=== PATIENT | female | born 1960 | race Caucasian/White ===

== ENCOUNTER → 2016-09-05 | Outpatient (CLI) | payer OTHER ==
[~2016-09-05] MED LIST: CALC600T62 PO; DEPA1TAB3 PO; DICL1GEL3 TD; FISH1000 PO; FOLI400T PO; LISI10TA4 PO; SIMV20TA2 PO; VALP1CAP2 PO; VITA100072 PO; VITA500055 PO
--- NOTE | 2016-09-05 17:45 | REP ---
Digital diagnostic bilateral mammography with CAD and bilateral focused breast sonography: History: Screening mammography from August 25, 2016 was BIRADS category 0 because of a suspected subcentimeter nodule in the medial aspect of each breast. Diagnostic imaging was recommended bilaterally. Comparison is also made with prior mammography from January 08, 2015 and December 25, 2013. Mammographic findings: Magnified focal spot compression CC, MLO and true MLO views of each breast were obtained. The nodular opacity is confirmed in the medial aspect of the right breast on CC view. It is also seen on MLO projection magnified spot view. It has sharply circumscribed margins. On the left, there is a nodular opacity seen in the medial aspect of the left breast on the CC view. This is not confidently identified on the orthogonal MLO and true MLO views. Questionable opacity is seen on the MLO projection image. Breast parenchyma is somewhat nodular throughout. There are benign calcifications. No suspicious calcification is appreciated. Sonographic findings: The inferomedial quadrant each breast is evaluated sonographically. In the inferomedial quadrant of the right breast at approximately 3 o'clock, there is a 9 x 8 x 3 mm cyst 2.7 cm from the nipple, which it is felt to correspond with the mammographic opacity. There is also a 7 mm cyst at 3 o'clock in the right breast. In the inferomedial quadrant of the left breast, heterogeneous fibroglandular background echotexture is seen but no mass or cyst is observed. Impression: 1. BIRADS category 2 benign right breast imaging. Cyst identified sonographically corresponding to the mammographic opacity. 2. BIRADS category 3 probably benign left breast imaging. Small 4 mm nodular density seen with confidence only on the CC view. No sonographic correlate. 6-month follow-up left breast mammography and sonography is suggested. BI-RADS/ACR category 3 mammogram. Probably benign findings. Initial short-term followup (usually 6 month) examination. This mammogram was interpreted with the aid of an FDA-approved computer-aided detection system. The patient states she/he had a clinical breast exam in January 2016. The patient letter being requested is M3. The patient letter being requested is M3 . . Signed by Mohsen Weems MD 09/06/2016 08:01 A
== END ==
LOC: M RAD 13:52
PROVIDERS: ATTEND Family Medicine
DX: N60.01 Solitary cyst of right breast (principal); N63 Unspecified lump in breast

== ENCOUNTER → 2016-09-05 | Outpatient (CLI) | payer OTHER ==
--- NOTE | 2016-09-07 10:15 | DEXA ---
AP SPINE L1 - L4 0.951 -2.0 -2.1 LT FEMUR TOTAL 0.941 -0.5 -0.5 RT FEMUR TOTAL 0.961 -0.4 -0.4 TOTAL BODY TOTAL OTHER DUAL FEMUR FRAX* ASSESSMENT Risk factors: History of fracture (adult). 10 year probability of fracture Major osteoporotic fracture 10.0 % Hip fracture 0.5 % COMMENTS: Normal bone densitometry of the right hip. There is low bone density of the spine. There is low bone density of the left hip. The density of the spine has decreased 3.5% since 12/25/2013. The density of the left hip has decreased 4.7% since 12/25/2013. The density of the right hip has decreased 3.4% since 12/25/2013. FOLLOW-UP: Recommendation for the next bone density exam: 2 years. DILAN
== END ==
LOC: M WHC 13:11
PROVIDERS: ATTEND Family Medicine
DX: M85.80 Other specified disorders of bone density and structure, unspecified site (principal)

== ENCOUNTER → 2016-11-17 | Outpatient (REF) | payer OTHER ==
[2016-11-17 13:05] LABS: ALBUMIN 3.5 GM/DL (3.2-5.2); ALKALINE PHOSPHATASE 64 U/L (45-117); ALT/SGPT 19 U/L (12-78); ANION GAP 7 MEQ/L (8-16); AST/SGOT 12 U/L (15-37); BILIRUBIN,TOTAL 0.4 MG/DL (0.2-1.0); BLOOD UREA NITROGEN 16 MG/DL (7-18); CALCIUM LEVEL 9.2 MG/DL (8.5-10.1); CARBON DIOXIDE LEVEL 30 MEQ/L (21-32); CHLORIDE LEVEL 105 MEQ/L (98-107); CHOLESTEROL LEVEL 137 MG/DL (<200); CREATININE FOR GFR 0.59 MG/DL (0.55-1.02); GLOMERULAR FILTRATION RATE > 60.0 (>51); GLUCOSE, FASTING 103 MG/DL (70-105); MAGNESIUM LEVEL 2.2 MG/DL (1.8-2.4); POTASSIUM SERUM 4.4 MEQ/L (3.5-5.1); SODIUM LEVEL 142 MEQ/L (136-145); TRIGLYCERIDES LEVEL 201 MG/DL (<150)
[2016-11-17 13:07] LABS: VITAMIN B12 LEVEL 772 PG/ML (247-911)
== END ==
LOC: M SFHCPLAZ 08:05
PROVIDERS: ATTEND Family Medicine
DX: E78.2 Mixed hyperlipidemia (principal); G40.909 Epilepsy, unspecified, not intractable, without status epilepticus; E53.8 Deficiency of other specified B group vitamins

== ENCOUNTER → 2017-02-23 | Outpatient (CLI) | payer OTHER ==
--- NOTE | 2017-02-23 10:33 | REP ---
Digital diagnostic unilateral left breast mammography with CAD: History: Six month follow-up left breast mammogram previously BIRADS category 3 for a small 4 mm nodule seen medially on the CC view. Comparison is also made with prior mammography from August 25, 2016 and January 08, 2015. Mammographic findings: Today's CC, magnified focal spot compression CC, MLO and magnified MLO views no longer reveal the nodular opacity. This appears to have resolved. Mild fibroglandular elements are again seen unchanged from the comparison study. Impression: BIRADS category 2 benign left breast mammography. Annual bilateral screening mammography can be resumed in 6 months time. This mammogram was interpreted with the aid of an FDA-approved computer-aided detection system. BI-RADS/ACR category 2 mammogram. Benign finding(s). Routine annual screening mammography (for women over age 40). The patient states she/he had a clinical breast exam in October 2016 The patient letter being requested is M1. Signed by Mohsen Weems MD 02/23/2017 05:12 P
== END ==
LOC: M RAD 09:29
PROVIDERS: ATTEND Family Medicine
DX: R92.8 Other abnormal and inconclusive findings on diagnostic imaging of breast (principal)

== ENCOUNTER → 2017-04-06 | Outpatient (REF) | payer OTHER ==
[2017-04-06 12:26] LABS: ALBUMIN 3.5 GM/DL (3.2-5.2); ALBUMIN/GLOBULIN RATIO 0.97 (1.00-1.93); ALKALINE PHOSPHATASE 63 U/L (45-117); ALT/SGPT 36 U/L (12-78); ANION GAP 10 MEQ/L (8-16); AST/SGOT 22 U/L (15-37); BILIRUBIN,TOTAL 0.5 MG/DL (0.2-1.0); BLOOD UREA NITROGEN 15 MG/DL (7-18); CALCIUM LEVEL 9.1 MG/DL (8.5-10.1); CARBON DIOXIDE LEVEL 27 MEQ/L (21-32); CHLORIDE LEVEL 105 MEQ/L (98-107); CREATININE FOR GFR 0.68 MG/DL (0.55-1.02); FERRITIN 438 NG/ML (8-252); GLOMERULAR FILTRATION RATE > 60.0 (>51); GLUCOSE, FASTING 97 MG/DL (70-105); PERCENT SATURATION 39.2 % (13.2-45.0); POTASSIUM SERUM 4.5 MEQ/L (3.5-5.1); SODIUM LEVEL 142 MEQ/L (136-145); TOTAL IRON BINDING CAPACITY 268 UG/DL (250-450); TOTAL PROTEIN 7.1 GM/DL (6.4-8.2)
[2017-04-06 12:30] LABS: BASO % 0.7 % (0.0-1.0); EOS # 0.1 K/mm3 (0.0-0.50); EOS % 1.7 % (0.0-3.0); LARGE UNSTAINED CELL # 0.1 K/mm3 (0.0-0.4); LARGE UNSTAINED CELL % 1.6 % (0.0-4.0); LYMPH # 2.1 K/mm3 (1.5-4.5); MEAN CORPUSCULAR HEMOGLOBIN 31.3 pg (27.0-33.0); MEAN CORPUSCULAR HGB CONC 33.4 g/dl (32.0-36.5); MEAN CORPUSCULAR VOLUME 93.7 fl (80.0-96.0); MONO # 0.4 K/mm3 (0.0-0.8); MONO % 8.2 % (0.0-5.0); NEUTROPHILS # 2.3 K/mm3 (1.8-7.7); NEUTROPHILS % 46.8 % (36.0-66.0); PLATELET COUNT, AUTOMATED 175 k/mm3 (150-450); RED CELL DISTRIBUTION WIDTH 12.4 % (11.5-14.5)
== END ==
LOC: M SFHCPLAZ 08:01
PROVIDERS: ATTEND Family Medicine
DX: K90.0 Celiac disease (principal); M85.80 Other specified disorders of bone density and structure, unspecified site; I10 Essential (primary) hypertension; G40.909 Epilepsy, unspecified, not intractable, without status epilepticus

== ENCOUNTER 2017-06-09 22:32 | Emergency (ER) | payer OTHER ==
[~2017-06-09] VITALS: Ht 162.6 cm; Wt 98.6 kg
[2017-06-10 01:14] VITALS: BP 158/74
[2017-06-10] MEDS ORDERED: PERCOCET 5MG/325MG TAB PO ONE (01:30)
--- NOTE | 2017-06-10 11:30 | REP ---
Left ankle series: Four views. History: Injury in a fall. Comparison study: February 25, 2016 left foot series. Findings: There is prominent Achilles and plantar calcaneal spurring. Some midfoot spurring is seen. These findings are unchanged. Ankle mortise is intact. There is anterolateral swelling. No fracture is seen. Impression: No fracture noted. Signed by Mohsen Weems MD 06/10/2017 09:38 A
== END 2017-06-10 01:30 | disposition home or self-care (01) ==
LOC: M ED 22:32
DX: S93.402A Sprain of unspecified ligament of left ankle, initial encounter (principal); W01.0XXA Fall on same level from slipping, tripping and stumbling without subsequent striking against object, initial encounter; Y92.89 Other specified places as the place of occurrence of the external cause; Y93.89 Activity, other specified; Y99.0 Civilian activity done for income or pay; I10 Essential (primary) hypertension; J45.909 Unspecified asthma, uncomplicated; R56.9 Unspecified convulsions; Z78.0 Asymptomatic menopausal state; Z79.899 Other long term (current) drug therapy

== ENCOUNTER → 2017-09-28 | Outpatient (REF) | payer OTHER ==
[2017-09-28 12:21] LABS: BASO % 0.6 % (0.0-1.0); EOS # 0.1 10^3/uL (0.0-0.50); EOS % 1.2 % (0.0-3.0); HEMATOCRIT 40.3 % (36.0-47.0); HEMOGLOBIN 13.3 g/dl (12.0-16.0); IMMATURE GRANULOCYTE % 0.2 % (0-0); LYMPH # 2.2 10^3/uL (1.5-4.5); LYMPH % 42.8 % (24.0-44.0); MEAN CORPUSCULAR HEMOGLOBIN 30.6 pg (27.0-33.0); MEAN CORPUSCULAR VOLUME 92.6 fl (80.0-96.0); MONO # 0.4 10^3/uL (0.0-0.8); MONO % 8.6 % (0.0-5.0); NEUTROPHILS # 2.4 10^3/uL (1.8-7.7); NEUTROPHILS % 46.6 % (36.0-66.0); PLATELET COUNT, AUTOMATED 173 10^3/uL (150-450); RED BLOOD COUNT 4.35 10^6/uL (4.00-5.40); RED CELL DISTRIBUTION WIDTH 12.2 % (11.5-14.5); WHITE BLOOD COUNT 5.1 10^3/uL (4.0-10.0)
[2017-09-28 12:29] LABS: ALBUMIN 3.6 GM/DL (3.2-5.2); ALBUMIN/GLOBULIN RATIO 0.88 (1.00-1.93); ALKALINE PHOSPHATASE 69 U/L (45-117); ALT/SGPT 27 U/L (12-78); ANION GAP 6 MEQ/L (8-16); AST/SGOT 15 U/L (7-37); BILIRUBIN,TOTAL 0.4 MG/DL (0.2-1.0); BLOOD UREA NITROGEN 16 MG/DL (7-18); CALCIUM LEVEL 9.1 MG/DL (8.5-10.1); CARBON DIOXIDE LEVEL 31 MEQ/L (21-32); CHLORIDE LEVEL 104 MEQ/L (98-107); CHOLESTEROL LEVEL 159 MG/DL (<200); CHOLESTEROL RISK RATIO 5.482 (<5); CREATININE FOR GFR 0.56 MG/DL (0.55-1.30); FREE T4 1.16 NG/DL (0.76-1.46); GLOMERULAR FILTRATION RATE > 60.0 (>51); GLUCOSE, FASTING 101 MG/DL (70-100); HDL CHOLESTEROL 29 MG/DL (>40); LDL CHOLESTEROL 78.8 MG/DL (<100); NON-HDL-C 130 MG/DL; POTASSIUM SERUM 4.7 MEQ/L (3.5-5.1); SODIUM LEVEL 141 MEQ/L (136-145); TOTAL PROTEIN 7.7 GM/DL (6.4-8.2); TRIGLYCERIDES LEVEL 256 MG/DL (<150); VALPROIC ACID (DEPAKOTE) 80.5 UG/ML (50.0-100.0)
[2017-09-28 14:37] LABS: ESTIMATED AVERAGE GLUCOSE 120 MG/DL (60-110); HEMOGLOBIN A1c 5.8 %
== END ==
LOC: M SFHCPLAZ 08:22
DX: G40.909 Epilepsy, unspecified, not intractable, without status epilepticus (principal); E78.2 Mixed hyperlipidemia

== ENCOUNTER 2018-01-16 21:11 | Emergency (ER) | payer OTHER ==
[2018-01-16 22:04] LABS: KETONE, URINE AUTO RFX NEGATIVE (NEGATIVE); LEUKOCYTE ESTERASE UR AUTO RFX NEGATIVE (NEGATIVE); NITRITE, URINE AUTO RFX NEGATIVE (NEGATIVE); RBC, URINE AUTO RFX 1 /HPF (0-3); SPECIFIC GRAVITY UR AUTO RFX 1.006 (1.002-1.035); SQUAM EPITHELIAL CELL UR AURFX 0 /HPF (0-6); WBC, URINE AUTO RFX 0 /HPF (0-3)
[2018-01-17] MEDS: ONDANSETRON 4MG/2ML VIAL (J2405) IV (00:06)
[2018-01-17] MEDS: KETOROLAC 30 MG/ML VIAL (J1885) IV (00:07)
[2018-01-17 00:14] LABS: BASO % 0.5 % (0.0-1.0); EOS # 0.1 10^3/uL (0.0-0.50); HEMATOCRIT 36.5 % (36.0-47.0); HEMOGLOBIN 12.3 g/dl (12.0-15.5); IMMATURE GRANULOCYTE % 0.1 % (0-3.0); LYMPH # 2.7 10^3/uL (1.5-4.5); LYMPH % 32.1 % (24.0-44.0); MEAN CORPUSCULAR HEMOGLOBIN 30.8 pg (27.0-33.0); MEAN CORPUSCULAR HGB CONC 33.7 g/dl (32.0-36.5); MEAN CORPUSCULAR VOLUME 91.5 fl (80.0-96.0); MONO # 0.8 10^3/uL (0.0-0.8); MONO % 9.8 % (0.0-5.0); NEUTROPHILS # 4.7 10^3/uL (1.8-7.7); NEUTROPHILS % 56.5 % (36.0-66.0); PLATELET COUNT, AUTOMATED 154 10^3/uL (150-450); RED BLOOD COUNT 3.99 10^6/uL (4.00-5.40); WHITE BLOOD COUNT 8.3 10^3/uL (4.0-10.0)
[2018-01-17 00:33] LABS: ALBUMIN 3.3 GM/DL (3.2-5.2); ALBUMIN/GLOBULIN RATIO 0.87 (1.00-1.93); ALKALINE PHOSPHATASE 63 U/L (45-117); ALT/SGPT 20 U/L (12-78); ANION GAP 5 MEQ/L (8-16); AST/SGOT 8 U/L (7-37); BILIRUBIN,DIRECT 0.2 MG/DL (0.0-0.2); BILIRUBIN,TOTAL 0.8 MG/DL (0.2-1.0); BLOOD UREA NITROGEN 10 MG/DL (7-18); CALCIUM LEVEL 8.6 MG/DL (8.5-10.1); CARBON DIOXIDE LEVEL 29 MEQ/L (21-32); CHLORIDE LEVEL 104 MEQ/L (98-107); CREATININE FOR GFR 0.68 MG/DL (0.55-1.30); GLOMERULAR FILTRATION RATE > 60.0 (>51); GLUCOSE, FASTING 102 MG/DL (70-100); LIPASE 103 U/L (73-393); SODIUM LEVEL 138 MEQ/L (136-145); TOTAL PROTEIN 7.1 GM/DL (6.4-8.2)
[2018-01-17 00:34] LABS: LACTIC ACID SEPSIS PROTOCOL 0.7 MMOL/L (0.4-2.0)
[2018-01-17] MEDS ORDERED: ISOVUE-370 76% 100ML VIAL (Q9967) As Ordered (01:06)
[2018-01-17] MEDS: CIPROFLOXACIN 500 MG TAB PO (02:54)
[2018-01-17] MEDS: metroNIDAZOLE (FLAGYL) 500 MG TAB PO (02:54)
[2018-01-17] MEDS: OXYCODONE/APAP 5MG/325MG(BULK FOR ED) 1 TABLET PO (02:55)
== END 2018-01-17 03:06 | disposition home or self-care (01) ==
LOC: M ED 21:11
DX: K57.32 Diverticulitis of large intestine without perforation or abscess without bleeding (principal); K76.0 Fatty (change of) liver, not elsewhere classified; I10 Essential (primary) hypertension; G47.30 Sleep apnea, unspecified; Z87.891 Personal history of nicotine dependence; Z79.899 Other long term (current) drug therapy
CPT/HCPCS: J2405

== ENCOUNTER → 2018-01-30 | Outpatient (REF) | payer OTHER ==
[2018-01-30 11:57] LABS: BASO # 0.1 10^3/uL (0.0-0.2); BASO % 1.1 % (0.0-1.0); EOS # 0.1 10^3/uL (0.0-0.50); EOS % 1.7 % (0.0-3.0); HEMATOCRIT 39.7 % (36.0-47.0); HEMOGLOBIN 12.9 g/dl (12.0-15.5); IMMATURE GRANULOCYTE % 0.4 % (0-3.0); LYMPH # 1.9 10^3/uL (1.5-4.5); LYMPH % 34.6 % (24.0-44.0); MEAN CORPUSCULAR HEMOGLOBIN 30.1 pg (27.0-33.0); MEAN CORPUSCULAR HGB CONC 32.5 g/dl (32.0-36.5); MEAN CORPUSCULAR VOLUME 92.8 fl (80.0-96.0); MONO # 0.6 10^3/uL (0.0-0.8); MONO % 10.2 % (0.0-5.0); NEUTROPHILS # 2.8 10^3/uL (1.8-7.7); PLATELET COUNT, AUTOMATED 205 10^3/uL (150-450); RED BLOOD COUNT 4.28 10^6/uL (4.00-5.40); RED CELL DISTRIBUTION WIDTH 12.1 % (11.5-14.5); WHITE BLOOD COUNT 5.4 10^3/uL (4.0-10.0)
[2018-01-30 11:59] LABS: APPEARANCE, URINE CLEAR (CLEAR); BACTERIA, URINE AUTO NEGATIVE (NEGATIVE); BILIRUBIN, URINE AUTO NEGATIVE (NEGATIVE); BLOOD, URINE BLOOD NEGATIVE (NEGATIVE); COLOR, URINE YELLOW (YELLOW); GLUCOSE, URINE (UA) AUTO NEGATIVE (NEGATIVE); KETONE, URINE AUTO NEGATIVE (NEGATIVE); LEUKOCYTE ESTERASE, URINE AUTO NEGATIVE (NEGATIVE); NITRITE, URINE AUTO NEGATIVE (NEGATIVE); PROTEIN, URINE AUTO NEGATIVE (NEGATIVE); RBC, URINE AUTO 0 /HPF (0-3); SPECIFIC GRAVITY URINE AUTO 1.021 (1.002-1.035); SQUAMOUS EPITHELIAL CELL UR AU 3 /HPF (0-6); UROBILINOGEN, URINE AUTO 0.2 mg/dL (0.0-2.0); WBC, URINE AUTO 1 /HPF (0-3)
[2018-01-30 12:19] LABS: ESTIMATED AVERAGE GLUCOSE 117 MG/DL (60-110); HEMOGLOBIN A1c 5.7 %
[2018-01-30 12:21] LABS: ALBUMIN 3.6 GM/DL (3.2-5.2); ALBUMIN/GLOBULIN RATIO 0.97 (1.00-1.93); ALKALINE PHOSPHATASE 63 U/L (45-117); ALT/SGPT 30 U/L (12-78); ANION GAP 6 MEQ/L (8-16); AST/SGOT 15 U/L (7-37); BILIRUBIN,TOTAL 0.5 MG/DL (0.2-1.0); BLOOD UREA NITROGEN 12 MG/DL (7-18); CALCIUM LEVEL 9.2 MG/DL (8.5-10.1); CARBON DIOXIDE LEVEL 29 MEQ/L (21-32); CHLORIDE LEVEL 106 MEQ/L (98-107); CREATININE FOR GFR 0.72 MG/DL (0.55-1.30); GLOMERULAR FILTRATION RATE > 60.0 (>51); GLUCOSE, FASTING 105 MG/DL (70-100); SODIUM LEVEL 141 MEQ/L (136-145); TOTAL PROTEIN 7.3 GM/DL (6.4-8.2); VALPROIC ACID (DEPAKOTE) 54.9 UG/ML (50.0-100.0)
[2018-01-30 12:55] LABS: MALB URINE SIEMENS 7.7 MG/L; MAU/CREAT RATIO 6.2 MCG/MG (0.0-30.0)
[2018-01-31 14:14] LABS: INSULIN LEVEL 16.1 uIU/mL (2.6-24.9)
== END ==
LOC: M SFHCPLAZ 08:10
DX: G40.909 Epilepsy, unspecified, not intractable, without status epilepticus (principal); R73.01 Impaired fasting glucose

== ENCOUNTER → 2018-05-18 | Outpatient (CLI) | payer OTHER | LOC: M WUC 14:39 | DX: M54.5 Low back pain (principal) | CPT/HCPCS: 72110 ==

== ENCOUNTER 2018-05-21 15:27 | Emergency (ER) | payer OTHER | END 2018-05-21 17:24 | disposition home or self-care (01) | LOC: M ED 15:27 | DX: S39.012A Strain of muscle, fascia and tendon of lower back, initial encounter (principal); X50.0XXA Overexertion from strenuous movement or load, initial encounter; Y92.9 Unspecified place or not applicable; Y93.9 Activity, unspecified; Y99.9 Unspecified external cause status; Z87.891 Personal history of nicotine dependence; Z79.899 Other long term (current) drug therapy | CPT/HCPCS: 99282 ==

== ENCOUNTER 2018-05-29 09:48 | Emergency (ER) | payer OTHER | END 2018-05-29 10:12 | disposition home or self-care (01) | LOC: M ED 09:48 | DX: S39.002A Unspecified injury of muscle, fascia and tendon of lower back, initial encounter (principal); X58.XXXA Exposure to other specified factors, initial encounter; Y92.89 Other specified places as the place of occurrence of the external cause; J45.909 Unspecified asthma, uncomplicated; I10 Essential (primary) hypertension; Z79.899 Other long term (current) drug therapy | CPT/HCPCS: 99282 ==

== ENCOUNTER → 2018-06-10 | Outpatient (REF) | payer OTHER ==
[2018-06-10 12:34] LABS: BASO % 0.6 % (0.0-1.0); EOS # 0.1 10^3/uL (0.0-0.50); EOS % 1.5 % (0.0-3.0); HEMATOCRIT 39.1 % (36.0-47.0); HEMOGLOBIN 12.9 g/dl (12.0-15.5); IMMATURE GRANULOCYTE % 0.4 % (0-3.0); LYMPH # 1.9 10^3/uL (1.5-4.5); LYMPH % 38.9 % (24.0-44.0); MEAN CORPUSCULAR HEMOGLOBIN 30.5 pg (27.0-33.0); MEAN CORPUSCULAR VOLUME 92.4 fl (80.0-96.0); MONO # 0.5 10^3/uL (0.0-0.8); MONO % 9.8 % (0.0-5.0); NEUTROPHILS # 2.3 10^3/uL (1.8-7.7); NEUTROPHILS % 48.8 % (36.0-66.0); PLATELET COUNT, AUTOMATED 162 10^3/uL (150-450); RED BLOOD COUNT 4.23 10^6/uL (4.00-5.40); RED CELL DISTRIBUTION WIDTH 12.3 % (11.5-14.5); WHITE BLOOD COUNT 4.8 10^3/uL (4.0-10.0)
[2018-06-10 12:38] LABS: ALBUMIN 3.5 GM/DL (3.2-5.2); ALBUMIN/GLOBULIN RATIO 1.03 (1.00-1.93); ALKALINE PHOSPHATASE 62 U/L (45-117); ALT/SGPT 28 U/L (12-78); ANION GAP 6 MEQ/L (8-16); AST/SGOT 10 U/L (7-37); BILIRUBIN,TOTAL 0.5 MG/DL (0.2-1.0); BLOOD UREA NITROGEN 13 MG/DL (7-18); CALCIUM LEVEL 9.1 MG/DL (8.5-10.1); CARBON DIOXIDE LEVEL 31 MEQ/L (21-32); CHLORIDE LEVEL 106 MEQ/L (98-107); CREATININE FOR GFR 0.68 MG/DL (0.55-1.30); GLOMERULAR FILTRATION RATE > 60.0 (>51); GLUCOSE, FASTING 98 MG/DL (70-100); POTASSIUM SERUM 4.5 MEQ/L (3.5-5.1); SODIUM LEVEL 143 MEQ/L (136-145); TOTAL PROTEIN 6.9 GM/DL (6.4-8.2); VALPROIC ACID (DEPAKOTE) 56.2 UG/ML (50.0-100.0)
[2018-06-10 12:47] LABS: PTH INTACT 65.6 PG/ML (18.5-88.0); TOTAL 25(OH) VITAMIN D 29.4 NG/ML (30.0-100.0)
[2018-06-12 00:12] LABS: TISSUE TRANSGLUTAMINASE IgA >100 U/mL (0-3)
== END ==
LOC: M SFHCPLAZ 08:28
DX: K90.0 Celiac disease (principal); I10 Essential (primary) hypertension; E55.9 Vitamin D deficiency, unspecified; G40.909 Epilepsy, unspecified, not intractable, without status epilepticus

== ENCOUNTER 2018-07-15 19:38 | Emergency (ER) | payer OTHER ==
[2018-07-15 21:24] LABS: INFLUENZA A AMPLIFICATION NEGATIVE (NEGATIVE); INFLUENZA B AMPLIFICATION NEGATIVE (NEGATIVE)
[2018-07-15] MEDS: predniSONE 20 MG TAB PO (21:46)
== END 2018-07-15 21:48 | disposition home or self-care (01) ==
LOC: M ED 19:38
DX: J32.9 Chronic sinusitis, unspecified (principal); I10 Essential (primary) hypertension
CPT/HCPCS: 87502

== ENCOUNTER → 2018-10-21 | Outpatient (REF) | payer OTHER ==
[~2018-10-21] MED LIST changes: +CIPR-249 PO; +CYCL10TA; +FLAG500T PO; +FLON1SPR NARES; +IBUP-1022 PO; +PRED20TA PO; +ROBA500T PO; +VENTAER
[2018-10-21 13:23] LABS: BASO % 0.7 % (0.0-1.0); EOS # 0.1 10^3/uL (0.0-0.50); EOS % 1.3 % (0.0-3.0); HEMATOCRIT 41.7 % (36.0-47.0); HEMOGLOBIN 13.9 g/dl (12.0-15.5); LYMPH # 2.1 10^3/uL (1.5-4.5); LYMPH % 38.6 % (24.0-44.0); MEAN CORPUSCULAR HEMOGLOBIN 30.2 pg (27.0-33.0); MEAN CORPUSCULAR HGB CONC 33.3 g/dl (32.0-36.5); MEAN CORPUSCULAR VOLUME 90.7 fl (80.0-96.0); MONO # 0.5 10^3/uL (0.0-0.8); MONO % 8.8 % (0.0-5.0); NEUTROPHILS # 2.8 10^3/uL (1.8-7.7); NEUTROPHILS % 50.2 % (36.0-66.0); PLATELET COUNT, AUTOMATED 183 10^3/uL (150-450); WHITE BLOOD COUNT 5.6 10^3/uL (4.0-10.0)
[2018-10-21 13:52] LABS: RHEUMATOID FACTOR QUANT < 10.0 IU/ML (<15.0)
[2018-10-21 14:12] LABS: ERYTHROCYTE SEDIMENTATION RATE 13 mm/hr (0-30)
== END ==
LOC: M LABDRAW1 12:42
PROVIDERS: ATTEND Physician Assistant
DX: M79.644 Pain in right finger(s) (principal)

== ENCOUNTER → 2018-10-25 | Outpatient (REF) | payer OTHER ==
[2018-10-25 10:06] LABS: BASO % 0.6 % (0.0-1.0); EOS # 0.1 10^3/uL (0.0-0.50); EOS % 1.5 % (0.0-3.0); HEMATOCRIT 38.3 % (36.0-47.0); HEMOGLOBIN 12.7 g/dl (12.0-15.5); LYMPH # 2.3 10^3/uL (1.5-4.5); LYMPH % 43.3 % (24.0-44.0); MEAN CORPUSCULAR HEMOGLOBIN 30.5 pg (27.0-33.0); MEAN CORPUSCULAR HGB CONC 33.2 g/dl (32.0-36.5); MEAN CORPUSCULAR VOLUME 91.8 fl (80.0-96.0); MONO # 0.5 10^3/uL (0.0-0.8); MONO % 9.4 % (0.0-5.0); NEUTROPHILS # 2.4 10^3/uL (1.8-7.7); NEUTROPHILS % 44.8 % (36.0-66.0); PLATELET COUNT, AUTOMATED 152 10^3/uL (150-450); RED BLOOD COUNT 4.17 10^6/uL (4.00-5.40); WHITE BLOOD COUNT 5.3 10^3/uL (4.0-10.0)
[2018-10-25 10:40] LABS: ALBUMIN 3.4 GM/DL (3.2-5.2); ALT/SGPT 27 U/L (12-78); BILIRUBIN,TOTAL 0.4 MG/DL (0.2-1.0); BLOOD UREA NITROGEN 13 MG/DL (7-18); CALCIUM LEVEL 8.5 MG/DL (8.5-10.1); CARBON DIOXIDE LEVEL 30 MEQ/L (21-32); CHLORIDE LEVEL 106 MEQ/L (98-107); CHOLESTEROL LEVEL 158 MG/DL (<200); CHOLESTEROL RISK RATIO 5.642 (<5); CREATININE FOR GFR 0.66 MG/DL (0.55-1.30); FREE T4 1.08 NG/DL (0.76-1.46); GLOMERULAR FILTRATION RATE > 60.0 (>51); GLUCOSE, FASTING 98 MG/DL (70-100); HDL CHOLESTEROL 28 MG/DL (>40); LDL CHOLESTEROL 86 MG/DL (<100); NON-HDL-C 130 MG/DL; POTASSIUM SERUM 4.3 MEQ/L (3.5-5.1); SODIUM LEVEL 143 MEQ/L (136-145); TRIGLYCERIDES LEVEL 218 MG/DL (<150); VALPROIC ACID (DEPAKOTE) 74.7 UG/ML (50.0-100.0)
[2018-10-25 10:56] LABS: HEMATOCRIT 38.3 % (36.0-47.0)
[2018-10-25 11:15] LABS: HEMOGLOBIN A1c 5.8 %
== END ==
LOC: M SFHCPLAZ 08:15
PROVIDERS: ATTEND Family Medicine
DX: R73.01 Impaired fasting glucose (principal); E78.2 Mixed hyperlipidemia; E53.8 Deficiency of other specified B group vitamins; G40.909 Epilepsy, unspecified, not intractable, without status epilepticus

== ENCOUNTER → 2018-10-31 | Outpatient (REF) | payer BC ==
[2018-10-31 16:36] LABS: RHEUMATOID FACTOR QUANT < 10.0 IU/ML (<15.0)
[2018-11-04 00:10] LABS: ANA (HEP2) Positive (.); CYCLIC CITRULLINATED PEPTIDE 7 units (0-19)
== END ==
LOC: M SFHCPLAZ 13:07
PROVIDERS: ATTEND Family Medicine
DX: M19.041 Primary osteoarthritis, right hand (principal)

== ENCOUNTER → 2019-02-03 | Outpatient (CLI) | payer BC ==
[~2019-02-03] MED LIST changes: +VITA100018 PO; -VITA100072 PO
--- NOTE | 2019-02-04 08:43 | REP ---
RIGHT KNEE, FIVE VIEWS: Five views of the right knee are performed. There is no acute fracture or dislocation. There is mild medial joint space narrowing. There is mild patellofemoral compartment narrowing. There is no significant joint effusion. IMPRESSION: Mild degenerative changes. No fracture or dislocation. Electronically Signed by Uriel Holt MD 02/04/2019 12:44 P
== END ==
LOC: M RAD 21:08
PROVIDERS: ATTEND Physician Assistant Medical
DX: M25.861 Other specified joint disorders, right knee (principal)

== ENCOUNTER 2019-02-14 22:40 | Emergency (ER) | payer BC ==
[~2019-02-14] VITALS: Ht 162.6 cm; Wt 95.0 kg
[2019-02-14 22:40] VITALS: BP 153/72
[2019-02-15] MEDS ORDERED: IBUP-1022 PO (00:03)
== END 2019-02-15 00:28 | disposition home or self-care (01) ==
LOC: M ED 22:40
DX: S83.91XA Sprain of unspecified site of right knee, initial encounter (principal); X58.XXXA Exposure to other specified factors, initial encounter; Y92.89 Other specified places as the place of occurrence of the external cause; I11.0 Hypertensive heart disease with heart failure; I50.9 Heart failure, unspecified; J45.909 Unspecified asthma, uncomplicated; K57.92 Diverticulitis of intestine, part unspecified, without perforation or abscess without bleeding; G40.909 Epilepsy, unspecified, not intractable, without status epilepticus; G47.33 Obstructive sleep apnea (adult) (pediatric); K90.0 Celiac disease; Z87.891 Personal history of nicotine dependence

== ENCOUNTER → 2019-02-24 | Outpatient (REF) | payer BC ==
[2019-02-24 12:46] LABS: APPEARANCE, URINE CLEAR (CLEAR); BACTERIA, URINE AUTO 1+ (NEGATIVE); BILIRUBIN, URINE AUTO NEGATIVE (NEGATIVE); BLOOD, URINE BLOOD NEGATIVE (NEGATIVE); COLOR, URINE STRAW (YELLOW); GLUCOSE, URINE (UA) AUTO NEGATIVE (NEGATIVE); KETONE, URINE AUTO NEGATIVE (NEGATIVE); LEUKOCYTE ESTERASE, URINE AUTO NEGATIVE (NEGATIVE); MUCUS, URINE SMALL (NEGATIVE); NITRITE, URINE AUTO NEGATIVE (NEGATIVE); PROTEIN, URINE AUTO NEGATIVE (NEGATIVE); RBC, URINE AUTO 1 /HPF (0-3); SPECIFIC GRAVITY URINE AUTO 1.005 (1.002-1.035); SQUAMOUS EPITHELIAL CELL UR AU 1 /HPF (0-6); UROBILINOGEN, URINE AUTO 0.2 mg/dL (0.0-2.0); WBC, URINE AUTO 0 /HPF (0-3)
[2019-02-24 12:47] LABS: BASO % 0.9 % (0.0-1.0); EOS # 0.1 10^3/uL (0.0-0.50); EOS % 2.2 % (0.0-3.0); HEMATOCRIT 39.4 % (36.0-47.0); HEMOGLOBIN 12.6 g/dl (12.0-15.5); LYMPH # 1.9 10^3/uL (1.5-4.5); MEAN CORPUSCULAR HEMOGLOBIN 29.9 pg (27.0-33.0); MEAN CORPUSCULAR VOLUME 93.6 fl (80.0-96.0); MONO # 0.3 10^3/uL (0.0-0.8); MONO % 7.4 % (0.0-5.0); NEUTROPHILS # 2.3 10^3/uL (1.8-7.7); NEUTROPHILS % 48.9 % (36.0-66.0); PLATELET COUNT, AUTOMATED 167 10^3/uL (150-450); RED BLOOD COUNT 4.21 10^6/uL (4.00-5.40); WHITE BLOOD COUNT 4.6 10^3/uL (4.0-10.0)
[2019-02-24 13:01] LABS: ALBUMIN 3.4 GM/DL (3.2-5.2); ALT/SGPT 24 U/L (12-78); BILIRUBIN,TOTAL 0.4 MG/DL (0.2-1.0); BLOOD UREA NITROGEN 17 MG/DL (7-18); CALCIUM LEVEL 8.5 MG/DL (8.5-10.1); CARBON DIOXIDE LEVEL 30 MEQ/L (21-32); CHLORIDE LEVEL 107 MEQ/L (98-107); CREATININE FOR GFR 0.67 MG/DL (0.55-1.30); FREE T4 1.07 NG/DL (0.76-1.46); GLOMERULAR FILTRATION RATE > 60.0 (>51); GLUCOSE, FASTING 108 MG/DL (70-100); POTASSIUM SERUM 4.3 MEQ/L (3.5-5.1); SODIUM LEVEL 142 MEQ/L (136-145); THYROID PEROXIDASE ANTIBODY > 1300.0 U/ML (<60.0); VALPROIC ACID (DEPAKOTE) 67.5 UG/ML (50.0-100.0)
[2019-02-24 13:06] LABS: HEMOGLOBIN A1c 6.1 %
[2019-02-24 13:18] LABS: CREATININE, URINE 21.9 MG/DL; MALB URINE SIEMENS < 5.0 MG/L; MAU/CREAT RATIO 22.8 MCG/MG (0.0-30.0)
== END ==
LOC: M SFHCPLAZ 08:53
PROVIDERS: ATTEND Family Medicine
DX: G40.909 Epilepsy, unspecified, not intractable, without status epilepticus (principal); R73.01 Impaired fasting glucose

== ENCOUNTER 2019-05-06 15:38 | Emergency (ER) | payer BC, OTHER ==
[~2019-05-06] VITALS: Ht 162.6 cm; Wt 99.0 kg
[2019-05-06] MEDS ORDERED: NS 1,000 ML IV ONE (16:00)
[2019-05-06 17:00] LABS: BASO % 0.3 % (0.0-1.0); EOS # 0.1 10^3/uL (0.0-0.5); EOS % 1.2 % (0.0-3.0); HEMATOCRIT 38.3 % (36.0-47.0); HEMOGLOBIN 12.7 g/dl (12.0-15.5); LYMPH # 1.7 10^3/uL (1.5-5.0); LYMPH % 25.3 % (24.0-44.0); MEAN CORPUSCULAR HEMOGLOBIN 30.8 pg (27.0-33.0); MEAN CORPUSCULAR HGB CONC 33.2 g/dl (32.0-36.5); MEAN CORPUSCULAR VOLUME 92.7 fl (80.0-96.0); MONO # 0.4 10^3/uL (0.0-0.8); MONO % 6.7 % (0.0-5.0); NEUTROPHILS # 4.3 10^3/uL (1.5-8.5); PLATELET COUNT, AUTOMATED 165 10^3/uL (150-450); RED BLOOD COUNT 4.13 10^6/uL (4.00-5.40); WHITE BLOOD COUNT 6.6 10^3/uL (4.0-10.0)
[2019-05-06 17:25] LABS: BLOOD UREA NITROGEN 15 MG/DL (7-18); CARBON DIOXIDE LEVEL 26 MEQ/L (21-32); CHLORIDE LEVEL 109 MEQ/L (98-107); CK-MB VALUE MASS < 1.0 NG/ML (<3.6); CPK CREATINE PHOSPHOKINASE 44 U/L (26-192); CREATININE FOR GFR 0.79 MG/DL (0.55-1.30); GLOMERULAR FILTRATION RATE > 60.0 (>51); GLUCOSE, FASTING 138 MG/DL (70-100); MAGNESIUM LEVEL 1.9 MG/DL (1.8-2.4); MB/CK RELATIVE INDEX 2.27 (< OR =4); POTASSIUM SERUM 3.4 MEQ/L (3.5-5.1); SODIUM LEVEL 144 MEQ/L (136-145); TROPONIN I < 0.02 NG/ML (< 0.10)
[2019-05-06 17:58] VITALS: BP 124/69
--- NOTE | 2019-05-06 18:40 | REP ---
CHEST, PORTABLE: AP portable view of the chest is performed and compared to prior study of 07/11/2016. Cardiac silhouette is prominent and unchanged. There is pulmonary venous hypertension. Bibasilar fibro atelectatic change is stable. No new infiltrate is seen. There is calcification of the thoracic aorta. The mediastinal silhouette is unchanged. There are degenerative changes of the spine. IMPRESSION: Stable chronic findings with no evidence of acute infiltrate. Electronically Signed by Uriel Holt MD 05/07/2019 04:59 P
--- NOTE | 2019-05-06 19:32 | ECGEPIP ---
[facility] - ED Test Date: 2019-05-06 Pat Name: REANNA REICH Department: Room: - Gender: Female [employer] Library Clerk: nilton : 1960 Requested By: Amarilys Tee Order Number: [id number] Reading MD: Yeyo Cannon Measurements Intervals [place] Rate: 93 P: 35 VT: 208 QRS: 22 QRSD: 94 T: 21 QT: 335 QTc: 418 Interpretive Statements SINUS RHYTHM POOR R WAVE PROGRESSION SIMILAR TO 07/11/16 Electronically Signed on 05-06-2019 19:32:17 EDT by Yeyo Cannon
== END 2019-05-06 16:58 | disposition home or self-care (01) ==
LOC: EDBD 15:38 → M ED 15:38
DX: I95.1 Orthostatic hypotension (principal); I10 Essential (primary) hypertension; J45.909 Unspecified asthma, uncomplicated; K21.9 Gastro-esophageal reflux disease without esophagitis; Z79.899 Other long term (current) drug therapy

== ENCOUNTER 2019-09-25 21:36 | Emergency (ER) | payer BC ==
[~2019-09-25] VITALS: Ht 162.6 cm; Wt 98.1 kg
[~2019-09-25 21:36] MED LIST changes: -SIMV20TA2 PO; +SIMV20TA22 PO
[2019-09-26] MEDS ORDERED: ACETAMINOPHEN 325 MG TAB PO ONE (01:15)
[2019-09-26] MEDS ORDERED: LIDOCAINE 4% CREAM 5GM (LMX4) TOP ONE (01:15)
--- NOTE | 2019-09-26 01:56 | REPVR ---
PROCEDURE INFORMATION: Exam: US Duplex Left Lower Extremity Veins, Limited Exam date and time: 09/26/2019 1:33 AM Age: 59 years old Clinical indication: Pain; Leg, upper; Left; Additional info: PT tender posterior knee, fall TECHNIQUE: Imaging protocol: Real-time Duplex ultrasound of the Left Lower Extremity with 2-D bonilla scale, color Doppler flow and spectral waveform analysis with image documentation. Limited exam focused on the left lower extremity veins. COMPARISON: No relevant prior studies available. FINDINGS: Left deep veins: Unremarkable. The common femoral, femoral, proximal profunda femoral and popliteal veins are patent without thrombus. Normal Doppler waveforms. Normal compressibility and/or augmentation response. Left superficial veins: Unremarkable. Saphenofemoral junction is patent without thrombus. Soft tissues: Unremarkable. IMPRESSION: Negative left lower extremity venous duplex exam without evidence of deep venous thrombosis. Electronically signed by: Javier Mendoza On 09/26/2019 01:55:29 AM
[2019-09-26] MEDS ORDERED: ANEC4CRE3 TOP (02:27)
[2019-09-26 02:32] VITALS: BP 154/66
--- NOTE | 2019-09-26 06:02 | REP ---
Clinical: Trauma. Technique: AP, lateral, bilateral oblique and sunrise views left knee . Findings: The osseous structures and joint spaces are intact and normal. There is no evidence for acute fracture or dislocation. No joint effusion is appreciated. Surrounding soft tissues are unremarkable. No subcutaneous emphysema or radiodense foreign body. Impression: Age-appropriate examination. No acute fracture or dislocation. Electronically Signed by Michael Lynn MD 09/26/2019 05:53 A
== END 2019-09-26 02:37 | disposition home or self-care (01) ==
LOC: M ED 21:36
DX: S80.211A Abrasion, right knee, initial encounter (principal); S80.212A Abrasion, left knee, initial encounter; S80.02XA Contusion of left knee, initial encounter; W10.9XXA Fall (on) (from) unspecified stairs and steps, initial encounter; Y92.219 Unspecified school as the place of occurrence of the external cause; Y93.9 Activity, unspecified; Y99.9 Unspecified external cause status; Z87.891 Personal history of nicotine dependence; Z79.899 Other long term (current) drug therapy

== ENCOUNTER → 2020-01-30 | Outpatient (REF) | payer BC ==
[~2020-01-30] MED LIST changes: +ANEC4CRE3 TOP; +CYCL-707; -CYCL10TA
[2020-01-30 17:03] LABS: BASO % 0.7 % (0.0-1.0); EOS # 0.1 10^3/uL (0.0-0.5); EOS % 1.6 % (0.0-3.0); LYMPH # 2.1 10^3/uL (1.5-5.0); LYMPH % 38.1 % (24.0-44.0); MEAN CORPUSCULAR HGB CONC 32.5 g/dl (32.0-36.5); MEAN CORPUSCULAR VOLUME 92.2 fl (80.0-96.0); MONO # 0.5 10^3/uL (0.0-0.8); MONO % 9.8 % (0.0-5.0); NEUTROPHILS # 2.7 10^3/uL (1.5-8.5); NEUTROPHILS % 49.3 % (36.0-66.0); PLATELET COUNT, AUTOMATED 164 10^3/uL (150-450); RED BLOOD COUNT 4.34 10^6/uL (4.00-5.40); WHITE BLOOD COUNT 5.5 10^3/uL (4.0-10.0)
[2020-01-30 18:12] LABS: ALBUMIN 3.5 GM/DL (3.2-5.2); ALT/SGPT 30 U/L (12-78); BILIRUBIN,TOTAL 0.4 MG/DL (0.2-1.0); BLOOD UREA NITROGEN 20 MG/DL (7-18); CALCIUM LEVEL 9.1 MG/DL (8.5-10.1); CARBON DIOXIDE LEVEL 29 MEQ/L (21-32); CHLORIDE LEVEL 107 MEQ/L (98-107); CHOLESTEROL LEVEL 146 MG/DL (<200); CREATININE FOR GFR 0.68 MG/DL (0.55-1.30); FREE T4 1.09 NG/DL (0.76-1.46); GLOMERULAR FILTRATION RATE > 60.0 (>51); GLUCOSE, FASTING 104 MG/DL (70-100); HDL CHOLESTEROL 25 MG/DL (>40); LDL CHOLESTEROL 59 MG/DL (<100); NON-HDL-C 121 MG/DL; POTASSIUM SERUM 4.3 MEQ/L (3.5-5.1); SODIUM LEVEL 140 MEQ/L (136-145); TOTAL PROTEIN 7.4 GM/DL (6.4-8.2); TRIGLYCERIDES LEVEL 309 MG/DL (<150); VALPROIC ACID (DEPAKOTE) 67.3 UG/ML (50.0-100.0)
[2020-01-30 18:34] LABS: VITAMIN B12 LEVEL 713 PG/ML (247-911)
[2020-01-30 19:04] LABS: HEMOGLOBIN A1c 5.9 %
[2020-02-02 13:55] LABS: ALBUMIN 4.21 GM/DL (3.29-5.55); ALBUMIN % 56.9 % (55.8-66.1); ALPHA-1-GLOBULIN % 3.1 % (2.9-4.9); ALPHA-1-GLOBULINS 0.23 GM/DL (0.17-0.41); ALPHA-2-GLOBULINS 0.67 GM/DL (0.42-0.99); BETA-1-GLOBULINS 0.52 GM/DL (0.28-0.60); BETA-2-GLOBULINS 0.46 GM/DL (0.19-0.55); BETA-2-GLOBULINS % 6.2 % (3.2-6.5); GAMMA GLOBULIN % 17.8 % (11.1-18.8); GAMMA GLOBULINS 1.32 GM/DL (0.65-1.58)
== END ==
LOC: M SFHCPLAZ 14:01
PROVIDERS: ATTEND Family Medicine
DX: G40.909 Epilepsy, unspecified, not intractable, without status epilepticus (principal); R73.01 Impaired fasting glucose; E53.8 Deficiency of other specified B group vitamins

== ENCOUNTER 2020-09-16 08:55 | Emergency (ER) | payer BC ==
[~2020-09-16] VITALS: Ht 162.6 cm; Wt 96.8 kg
[~2020-09-16 08:55] MED LIST changes: +LISI10TA22 PO; -LISI10TA4 PO
--- OUTSIDE RECORDS SUMMARY | 2020-09-16 09:05 | CCD ---
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 Name Role Phone Sang Paul Unavailable PROBLEMS Type Condition ICD9-CM Code [id number] Code Onset Dates Condition S tatus SNOMED Code Notes Problem Hypertension I10 Active 94611749 Problem Combined hyperlipidemia E78.2 Active 14865108 3 Problem Seizure disorder G40.909 Active 992018069 Problem Asthma, mild intermittent J45.20 Active 640142 007 Problem Obesity E66.9 Active 102868976 Problem B12 deficiency E53.8 Active 713406079 Problem Breast cancer screening Z12.39 Active 10494144 6 Problem Osteopenia M85.80 Active 928878814 Problem Leukopenia D72.819 Active 30175094 Problem Vitamin D deficiency E55.9 Active 99640703 Problem IFG (impaired fasting glucose) R73.01 Active 3 81518310 Problem Primary osteoarthritis, right hand M19.041 Activ e 45485653 Problem First degree atrioventricular block I44.0 Acti ve 090267702 Problem CTS (carpal tunnel syndrome) G56.00 Active 574 74629 Problem Primary osteoarthritis of both knees M17.0 Act gurpreet 115192664 Problem Folic acid deficiency E53.8 Active 054817337 Problem Celiac disease K90.0 Active 435745391 Problem Colon cancer screening Z12.11 Active 652129536 Problem Diverticulitis K57.92 Active 078722799 Problem Lumbar spondylosis M47.816 Active 442435651 Problem Primary osteoarthritis of left hand M19.042 Acti ve 23551174 ALLERGIES No Known Allergies ENCOUNTERS from 1960 to 2020-07-16 Encounter Location Date Provider Diagnosis [facility] [address] [place] [address] Jun, 020 Sang Paul IMMUNIZATIONS Vaccine Route Administration Date Status Influenza (18 yrs & older) Flublok IM Intramuscular Jun 13, 2018 Administered Influenza (6mo & up) Fluzone IM Intramuscular Jul 25, 2016 Ad ministered Influenza (6mo & up) Fluzone IM Intramuscular May 26, 2014 Ad ministered Influenza (6mo & up) Fluzone IM Intramuscular Aug 08, 2013 Ad ministered SOCIAL HISTORY Tobacco Use: Social History Observation Description Date Details (start date - stop date) Former Smoker Sex Assigned At : Social History Observation Description Sex Assigned At Unknown Language: Question Answer Notes Languages spoken: [place]i Yazidi: Question Answer Notes Yazidi 08 Buddhist Sexual Hx: Question Answer Notes Had sex in the last 12 months (vaginal, oral, or anal)? No Have you ever had an STD? No Alcohol Screening: Question Answer Notes Did you have a drink containing alcohol in the past year? No Points 0 Interpretation Negative BMI Care Goal Follow-Up Question Answer Notes Above Normal BMI Follow-Up Giving encouragement to exercise Tobacco Use: Question Answer Notes Are you a: former smoker How long has it been since you last smoked? > 10 years REASON FOR REFERRAL No Information VITAL SIGNS No information MEDICATIONS Medication SIG (Take, Route, Frequency, Duration) Notes Start Da te End Date Status Valproic Acid 250 MG 1 cap(s) Orally at noon for 90 Active Lisinopril 10MG 1 tablet Orally every morning for 90 Active Folic Acid 400MCG 1 tablet Orally Once a day for 30 day(s) Active Calcium 600+D High Potency 600-400 MG-UNIT 1 tablet wi th food Orally Once a day for 90 day(s) Active Depakote 500 mg 1 tablet Orally Once a day for 90 day(s) Active Methocarbamol 500 MG 2 tablets Orally every 6 hours as needed for 30 Days Active Calcium 600+D High Potency 600-400 MG-UNIT 1 tablet wi th food Orally Once a day for 30 Active Proventil HFA 108 (90 Base) MCG/ACT 2 puffs as needed Inhalation every 4 hrs prn cough for 90 day(s) Active Simvastatin 20MG 1 tab orally Daily for 90 day(s) Active Divalproex Sodium 500 MG TAKE 1 TABLET BY MOUTH ONCE DAILY for 90 Active Vitamin D 5000 1 tablet Orally Once a day for 30 day(s) Active Albuterol Sulfate HFA 108 (90 Base) MCG/ACT 1 puff as needed Inhalation every 4 hrs Active [place]-3 Fish Oil 1 GM 2 capsules Orally Once a day Active Vitamin B12 1000 MCG 1 tablet Orally Once a day Active Ibuprofen 600 MG TK 1 T PO Q 6 H PRF P Oral Active PROCEDURES No Information RESULTS No Results REASON FOR VISIT no show MEDICAL (GENERAL) HISTORY Type Description Date Medical History hypertension-08/2013 TTE-mild LVH, grade 1 diastolic dysfunction-[facility] Medical History vitamin D deficiency Medical History seizure disorder, generalized Medical History hyperlipidemia 2B Medical History [place] Medical History B12/ folate acid deficency Medical History leukopenia/thrombocytopenia, chronic Medical History obesity Medical History NAFLD-seen by 05/2010 Medical History prior nicotine addiction-1 P PD from [age] yo-12/2012 FEV1 2.5L (83%)/ratio 116% Medical History L distal talus fracture s/p fall-casted x 4W by Dr. Sanford Medical History asthma, mild intermittent, worse in chil dhood, now c PIB Medical History celiac disease-confirmed by SB biopsy 09/2014-Juju, EGD c gastritis, - H pylori Medical History cervical DJD-08/2015 RUE [facility] s CTS but R mild chronic C7 radic-[facility] Medical History diverticulitis, recurrent-2n d episode (last 2009) 12/[address] AP, WBC 8.2, LA 0.7, normal CMP-resolved c c/m 10D Medical History lumbar spnondylosis-ML DSN/b bulges, topher L5/1 s compression by 06/2018 MRI NR (ordered by [facility]) Surgical History all teeth extracted in the 80s Surgical History colonoscopy-internal hemorrh oids, diverticulosis entire colon-Juju 02/2010 Hospitalization History syncope of vasovagal episode /dehydration/90 degree weather 2 1D viral GE-negative serial CIP/T-1/EKG/telemetry 04/05-06/2016 Goals Section No Information Health Concerns No Information MEDICAL EQUIPMENT No Information MENTAL STATUS No Information FUNCTIONAL STATUS No Information ASSESSMENTS No Information PLAN OF TREATMENT No Information Insurance Providers Payer Name Payer Address Payer Phone Insured Name Patient Relati onship to Insured Coverage Start Date Coverage End Date [place] [phone] [facility] RVX [place] [facility] [id number] REANNA REICH self
--- OUTSIDE RECORDS SUMMARY | 2020-09-16 09:06 | CCD ---
Author Author [facility] Organization [facility] Address Unknown Phone Unavailable Care Team Providers Care Occupational Therapy Instructor Name Role Phone DRAZEK, I TAMMI PA Unavailable Unavailable DRAZEK, I TAMMI PA Unavailable Unavailable DRAZEK, I TAMMI PA Unavailable Unavailable DRAZEK, I TAMMI PA Unavailable Unavailable DRAZEK, I TAMMI PA Unavailable Unavailable DRAZEK, I TAMMI PA Unavailable Unavailable DRAZEK, I TAMMI PA Unavailable Unavailable DRAZEK, I TAMMI PA Unavailable Unavailable DRAZEK, I TAMMI PA Unavailable Unavailable DRAZEK, I TAMMI PA Unavailable Unavailable DRAZEK, I TAMMI PA Unavailable Unavailable DRAZEK, I TAMMI PA Unavailable Unavailable DRAZEK, I TAMMI PA Unavailable Unavailable DRAZEK, I TAMMI PA Unavailable Unavailable DRAZEK, I TAMMI PA Unavailable Unavailable DRAZEK, I TAMMI PA Unavailable Unavailable DRAZEK, I TAMMI PA Unavailable Unavailable DRAZEK, I TAMMI PA Unavailable Unavailable DRAZEK, I TAMMI PA Unavailable Unavailable DRAZEK, I TAMMI PA Unavailable Unavailable DRAZEK, I TAMMI PA Unavailable Unavailable DRAZEK, I TAMMI PA Unavailable Unavailable DRAZEK, I TAMMI PA Unavailable Unavailable DRAZEK, I TAMMI PA Unavailable Unavailable DRAZEK, I TAMMI PA Unavailable Unavailable DRAZEK, I TAMMI PA Unavailable Unavailable DRAZEK, I TAMMI PA Unavailable Unavailable DRAZEK, I TAMMI PA Unavailable Unavailable DRAZEK, I TAMMI PA Unavailable Unavailable DRAZEK, I TAMMI PA Unavailable Unavailable AGNIESZKA, SHADI PA Unavailable Unavailable AGNIESZKA, SHADI PA Unavailable Unavailable AGNIESZKA, SHADI PA Unavailable Unavailable AGNIESZKA, SHADI PA Unavailable Unavailable AGNIESZKA, SHADI PA Unavailable Unavailable AGNIESZKA, SHADI PA Unavailable Unavailable AGNIESZKA, SHADI PA Unavailable Unavailable AGNIESZKA, SHADI PA Unavailable Unavailable AGNIESZKA, SHADI PA Unavailable Unavailable AGNIESZKA, SHADI PA Unavailable Unavailable AGNIESZKA, SHADI PA Unavailable Unavailable AGNIESZKA, SHADI PA Unavailable Unavailable AGNIESZKA, SHADI PA Unavailable Unavailable AGNIESZKA, SHADI PA Unavailable Unavailable AGNIESZKA, SHADI PA Unavailable Unavailable AGNIESZKA, SHADI PA Unavailable Unavailable AGNIESZKA, SHADI PA Unavailable Unavailable AGNIESZKA, SHADI PA Unavailable Unavailable AGNIESZKA, SHADI PA Unavailable Unavailable AGNIESZKA, SHADI PA Unavailable Unavailable AGNIESZKA, SHADI PA Unavailable Unavailable AGNIESZKA, SHADI PA Unavailable Unavailable AGNIESZKA, SHADI PA Unavailable Unavailable AGNIESZKA, SHADI PA Unavailable Unavailable AGNIESZKA, SHADI PA Unavailable Unavailable AGNIESZKA, SHADI PA Unavailable Unavailable AGNIESZKA, SHADI PA Unavailable Unavailable AGNIESZKA, SHADI PA Unavailable Unavailable AGNIESZKA, SHADI PA Unavailable Unavailable AGNIESZKA, SHADI PA Unavailable Unavailable AGNIESZKA, SHADI PA Unavailable Unavailable AGNIESZKA, SHADI PA Unavailable Unavailable AGNIESZKA, SHADI PA Unavailable Unavailable AGNIESZKA, SHADI PA Unavailable Unavailable AGNIESZKA, SHADI PA Unavailable Unavailable AGNIESZKA, SHADI PA Unavailable Unavailable AGNIESZKA, SHADI PA Unavailable Unavailable AGNIESZKA, SHADI PA Unavailable Unavailable Re-disclosure Warning The records that you are about to access may contain information from federally-assisted alcohol or drug abuse programs. If such information is present, then the following federally mandated warning applies: This information has been disclosed to you from records protected by federal confidentiality rules (42 CFR part 2). The federal rules prohibit you from making any further disclosure of this information unless further disclosure is expressly permitted by the written consent of the person to whom it pertains or as otherwise permitted by 42 CFR part 2. A general authorization for the release of medical or other information is NOT sufficient for this purpose. The Federal rules restrict any use of the information to criminally investigate or prosecute any alcohol or drug abuse patient.The records that you are about to access may contain highly sensitive health information, the redisclosure of which is protected by Article 27-F of the [facility] Public Health law. If you continue you may have access to information: Regarding HIV / AIDS; Provided by facilities licensed or operated by the [facility] Office of Mental Health; or Provided by the [facility] Office for People With Developmental Disabilities. If such information is present, then the following [facility] mandated warning applies: This information has been disclosed to you from confidential records which are protected by state law. State law prohibits you from making any further disclosure of this information without the specific written consent of the person to whom it pertains, or as otherwise permitted by law. Any unauthorized further disclosure in violation of state law may result in a fine or intermediate sentence or both. A general authorization for the release of medical or other information is NOT sufficient authorization for further disc losure. Family History Family Member Name Family Member Gender Family Member Status Date o f Status Description Data Source(s) Unknown Unknown Problem MEDENT ([facility]) brother,sister Unknown Male Problem MEDENT ([facility]) () Encounters Encounter Providers Location Date Indications Data Source(s ) [place] [address] [facility] [address] 07/15/2020 12:00:00 AM EST eCW1 ([facility]) [place] [address] [facility] [address] 01/30/2020 12:00:00 AM EDT eCW1 ([facility]) Outpatient Referrer: TAMMI SANDERS 10/15/2019 05:18:00 AM EST [facility] [place] [address] [facility] [address] 09/30/2019 12:00:00 AM EST eCW1 ([facility]) [facility] [address] [facility] [facility] [address] 09/15/2019 12:00:00 AM EST eCW1 ([facility]) Outpatient Attender: SHADI sy 08/31/2019 09:50:00 AM EST MEDENT ([facility], [facility]) [address] [address] 08/26/2019 12:00:00 AM EST eCW1 ([facility]) [address] [place] [address] 08/14/2019 12:00:00 AM EST eCW1 ([facility]) [address] [place] [address] 08/14/2019 12:00:00 AM EST eCW1 ([facility]) [address] [address] 08/11/2019 12:00:00 AM EST eCW1 ([facility]) Medications Medication Brand Name Start Date Product Form Dose Route Admi nistrative Instructions Pharmacy Instructions Status Indications Reaction Description Data Source(s) Doxycycline Monohydrate 100 MG Oral Capsule Doxycycline Pratt hydrate 08/31/2019 12:00:00 AM EST ORAL active M EDENT ([facility]) Prednisone 10 MG Oral Tablet Prednisone 08/31/2019 12:00:00 AM EST ORAL active MEDENT ([facility]) 200 ACTUAT Albuterol 0.09 MG/ACTUAT Metered Dose Inhal er [Ventolin] Ventolin HFA 08/31/2019 12:00:00 AM EST RESPIRATORY active MEDENT ([facility]) Benzonatate 200 MG UNK 08/26/2019 12:00:00 AM EST active 1 capsule eCW1 ([facility]) benzonatate 200 MG Oral Capsule Benzonatate 200 MG Benzonata te 200 MG 08/26/2019 12:00:00 AM EST active 1 capsu le eCW1 ([facility]) benzonatate 200 MG Oral Capsule Benzonatate 200 MG Benzonata te 200 MG 08/26/2019 12:00:00 AM EST active 1 etienne hernández eCW1 ([facility]) Insurance Providers Payer name Policy type / Coverage type Policy ID Covered democrat ID Covered democrat's relationship to redding Policy [place] Plan Information [place]/307 [id number] SP [id number] [place] 302/307 [id number] SP [id number] [place] BCBS B [id number] S [id number] [place] MANAGEMENT SARA [id number] SP [id number] [place] 306/806 [id number] SP [id number] ANSI-Not a Secondary Insurance [id number] ANSI-Commercial [id number] ANSI-Not a Secondary Insurance [id number] ANSI-Commercial [id number] ANSI-Commercial [id number] ANSI-Not a Secondary Insurance [id number] ANSI-Not a Secondary Insurance [id number] ANSI-Commercial [id number] ANSI-Not a Secondary Insurance [id number] ANSI-Commercial [id number] ANSI-Not a Secondary Insurance [id number] ANSI-Commercial [id number] [facility] Community Plan Medigap Part B [id number] Self [id number] MVP (pr) Commercial [id number] Self [id number] Pma Ins (WC) Workers Compensation [id number] Self [id number] [place] Commercial [id number] Self [id number] BS [place] Hmo Blue Option Medigap Part B [id number] Self [id number] ANSI-Not a Secondary Insurance [id number] ANSI-Not a Secondary Insurance [id number] ANSI-Commercial [id number] ANSI-Commercial [id number] [facility] Part B [id number] Self [id number] MVP (pr) Commercial [id number] Self [id number] Pma Ins ([place]) Workers Compensation [id number] Self [id number] BS [place] Commercial [id number] Self [id number] [place] [employer]gap Part B [id number] Self [id number] MVP (pr) Commercial [id number] Self [id number] [employer]ma Ins ([place]) Workers Compensation [id number] Self [id number] BS [place] Commercial [id number] Self [id number] [facility] Part B [id number] Self [id number] MVP (pr) Commercial [id number] Self [id number] Pma Ins ([place]) Workers Compensation [id number] Self [id number] BS [place] Commercial [id number] Self [id number] [employer] HEALTH CARE [id number] SP [id number] PMA MANAGEMENT SARA [id number] SP [id number] ANSI-Commercial [id number] ANSI-Not a Secondary Insurance [id number] ANSI-Not a Secondary Insurance [id number] [facility] ANSI-Not a Secondary Insurance [id number] ANSI-Not a Secondary Insurance [id number] ANSI-Commercial [id number] P HEALTH CARE [id number] SP [id number] ONE CALL CARE MANAGEMENT O [id number] S [id number] [facility] Part B [id number] Self [id number] MVP (pr) Commercial [id number] Self [id number] [employer]ma Ins (WC) Workers Compensation [id number] Self [id number] Pma Ins (WC) Workers Compensation [id number] Self [id number] ANSI-Commercial [id number] ANSI-Not a Secondary Insurance [id number] ANSI-Not a Secondary Insurance [id number] [facility] Part B [id number] Self [id number] MVP (pr) Commercial [id number] Self [id number] [employer]ma Ins (WC) Workers Compensation [id number] Self [id number] Pma Ins (WC) Workers Compensation [id number] Self [id number] PMA MANAGEMENT SARA [id number] SP [id number] P HEALTH CARE O [id number] S [id number] ANSI-Not a Secondary Insurance [id number] ANSI-Not a Secondary Insurance [id number] ANSI-Commercial [id number] MVP Commercial [id number] Self [id number] MVP Commercial [id number] Self [id number] [facility] Community Plan Medigap Part B [id number] Self [id number] MVP (pr) Commercial [id number] Self [id number] Pma Ins (WC) Workers Compensation [id number] Self [id number] MVP Commercial [id number] Self [id number] PMA MANAGEMENT SARA [id number] SP [id number] MVP HEALTH CARE [id number] SP [id number] MVP HEALTH CARE [id number] SP [id number] MVP HEALTH CARE [id number] SP [id number] MVP Commercial Self MEDICAID M [id number] S [id number] [facility] PHY [id number] SP [id number] [facility](WC) Workers Compensation Self SELF PAY UNAVAILABLE UNAVAILA BLE [employer] COMMUNITY PLAN [id number] SP [id number] [facility] Health Maintenance Organization (HMO) Self HMO BLUE [id number] SP [id number] BLUE CROSS [place] PLAN [id number] SP [id number] [facility] [id number] Self [id number] [facility](MCAID) P [id number] S [id number] [place] BCBS P [id number] S [id number] Surgeries/Procedures Procedure Description Date Indications Data Source(s) PRESSURIZED/NONPRESSURIZED INHALATION TREATMENT 2019 12:00:00 AM EST MEDENT ([facility]) Influenza A+B 08/26/2019 12:00:00 AM EST eCW1 ([facility]) Results ID Date Data Source [id number] 08/01/2020 05:00:00 PM EST [facility] Name Value Range Interpretation Code Description Data Anabel rce(s) Supporting Document(s) SARS coronavirus 2 RNA [facility] This lab was ordered by [employer] and rep orted by [facility]. Procedure Social History Code Duration Value Status Description Data Source(s ) Smoking 01/30/2020 12:00:00 AM EDT Former Smoker completed Former Smoker eCW1 ([facility]) Smoking 01/30/2020 12:00:00 AM EDT Former Smoker completed Former Smoker eCW1 ([facility]) Vital Signs ID Date Data Source UNK Name Value Range Interpretation Code Description Data Source(s) Diastolic blood pressure 80 mm[Hg] 80 mm[Hg] eCW1 ([facility]) Systolic blood pressure 140 mm[Hg] 140 mm[Hg] e CW1 ([facility]) Body temperature 98.5 [degF] 98.5 [degF] eCW1 ( [facility]) Respiratory rate 20 /min 20 /min eCW1 ([facility]) Heart rate 92 /min 92 /min eCW1 ([facility]) Body mass index (BMI) [Ratio] 33.64 kg/m2 33.64 kg/m2 [facility] ([facility]) Body height 67 [in_i] 67 [in_i] W1 ([facility]) Body weight 214.8 [lb_av] 214.8 [lb_av] eCW1 ([facility]) Diastolic blood pressure 74 mm[Hg] 74 mm[Hg] eCW1 ([facility]) Systolic blood pressure 132 mm[Hg] 132 mm[Hg] e CW1 ([facility]) Body temperature 98.2 [degF] 98.2 [degF] eCW1 ( [facility]) Respiratory rate 18 /min 18 /min eCW1 ([facility]) Heart rate 80 /min 80 /min eCW1 ([facility]) Body mass index (BMI) [Ratio] 33.51 kg/m2 33.51 kg/m2 eCW1 ([facility]) Body height 67 [in_us] 67 [in_us] eCW1 ([facility]) Body weight Measured 214 [lb_av] 214 [lb_av] eC W1 ([facility]) Diastolic blood pressure 82 mm[Hg] 82 mm[Hg] eCW1 ([facility]) Systolic blood pressure 136 mm[Hg] 136 mm[Hg] e CW1 ([facility]) Body temperature 98.7 [degF] 98.7 [degF] eCW1 ( [facility]) Respiratory rate 20 /min 20 /min eCW1 ([facility]) Heart rate 86 /min 86 /min eCW1 ([facility]) Body mass index (BMI) [Ratio] 33.36 kg/m2 33.36 kg/m2 eCW1 ([facility]) Body height 67 [in_us] 67 [in_us] eCW1 ([facility]) Body weight Measured 213.0 [lb_av] 213.0 [lb_av ] eCW1 ([facility]) Body mass index (BMI) [Ratio] 37.4 kg/m2 37.4 k g/m2 MEDENT ([facility], [facility]) Body height 64 [in_i] 64 [in_i] MEDENT ([facility], [facility]) 5'4" Body weight 218.00 [lb_av] 218.00 [lb_av] MEDEN T ([facility], [facility]) Body temperature 97.9 [degF] 97.9 [degF] MEDENT ([facility]) Oxygen saturation in Arterial blood by Pulse oximetry 97 % 97 % MEDENT ([facility], [facility]) Respiratory rate 18 /min 18 /min MEDENT ( [facility]) Heart rate 82 /min 82 /min MEDENT ([facility], [facility]) Diastolic blood pressure 74 mm[Hg] 74 mm[Hg] MEDENT ([facility], [facility]) Systolic blood pressure 160 mm[Hg] 160 mm[Hg] M EDENT ([facility], [facility]) Diastolic blood pressure 75 mm[Hg] 75 mm[Hg] eCW1 ([facility]) Systolic blood pressure 145 mm[Hg] 145 mm[Hg] e CW1 ([facility]) Body temperature 100.4 [degF] 100.4 [degF] eCW1 ([facility]) Respiratory rate 20 /min 20 /min eCW1 ([facility]) Heart rate 78 /min 78 /min eCW1 ([facility] hospital) Body mass index (BMI) [Ratio] 34.14 kg/m2 34.14 kg/m2 eCW1 ([facility]) Body height 67 [in_us] 67 [in_us] eCW1 ([facility]) Body weight Measured 218 [lb_av] 218 [lb_av] eC W1 ([facility]) Patient Treatment Plan of Care Planned Activity Planned Date Details Description Data Source (s) benzonatate 200 MG Oral Capsule 08/26/2019 12:00:00 AM EST eCW1 ([facility])
[2020-09-16] MEDS ORDERED: ACET325C5 PO (09:07)
--- OUTSIDE RECORDS SUMMARY | 2020-09-16 09:34 | CCD ---
Author Author [facility] Organization [facility] Address Unknown Phone Unavailable Care Team Providers Care House Wrecker Name Role Phone DRAZEK, I TAMMI PA [...] Unavailable Unavailable AGNIESZKA, SHADI PA Unavailable Unavailable ANGIESZKA, SHADI PA Unavailable Unavailable AGINESZKA, SHADI PA Unavailable Unavailable AGNIESZKA, SHADI PA [...] is protected by Article 27-F of the [facility] Public Health law. If you continue you may have access to information: Regarding HIV / AIDS; Provided by facilities licensed or operated by the [facility] Office of Mental Health; or Provided by the [facility] Office for People With Developmental Disabilities. If such information is present, then the following [facility] mandated warning applies: This information has [...] law may result in a fine or alf sentence or both. A general authorization for [...] Date Indications Data Source(s ) Unknown [address] [facility] [address] 07/15/2020 12:00:00 AM EST eCW1 ([facility]) Outpatient [address] [facility] [address] 01/30/2020 12:00:00 AM EDT eCW1 ([facility]) Outpatient Referrer: TAMMI SANDERS 10/15/2019 05:18:00 AM EST [facility] [place] [address] [facility] [address] 09/30/2019 12:00:00 AM EST eCW1 ([facility]) [facility] [address] [facility] [address] 09/15/2019 12:00:00 AM EST eCW1 ([facility]) Outpatient Attender: SHADI sy 08/31/2019 09:50:00 AM EST MEDENT ([facility]) [address] [address] 08/26/2019 12:00:00 AM EST eCW1 ([facility]) [address] [place] [address] 08/14/2019 12:00:00 AM EST eCW1 ([facility]) [address] [place] [address] 08/14/2019 12:00:00 AM EST eCW1 ([facility]) [address] [address] 08/11/2019 12:00:00 AM EST eCW1 ([facility]) Medications Medication Brand Name Start Date Product Form Dose Route Admi nistrative Instructions Pharmacy Instructions Status Indications Reaction Description Data Source(s) Doxycycline Monohydrate 100 MG Oral Capsule Doxycycline [place] hydrate 08/31/2019 12:00:00 AM EST ORAL active M EDENT ([facility]) Prednisone 10 MG Oral Tablet Prednisone 08/31/2019 12:00:00 AM EST ORAL active MEDENT ([facility]) 200 ACTUAT Albuterol 0.09 MG/ACTUAT Metered Dose Inhal er [Ventolin] Ventolin HFA 08/31/2019 12:00:00 AM EST RESPIRATORY active MEDENT ([facility]) Benzonatate 200 MG UNK 08/26/2019 12:00:00 AM EST active 1 capsule eCW1 ([facility]) benzonatate 200 MG Oral Capsule Benzonatate 200 MG Benzonata te 200 MG 08/26/2019 12:00:00 AM EST active 1 capsu le eCW1 ([facility]) benzonatate 200 MG Oral Capsule Benzonatate 200 MG Benzonata te 200 MG 08/26/2019 12:00:00 AM EST active 1 etienne hernández eCW1 ([facility]) Insurance Providers Payer name Policy type / Coverage type Policy ID Covered republican ID Covered republican's relationship to redding Policy [place] Plan Information [place] 302/307 [id number] SP [id number] [place] 302/307 [id number] SP [id number] EX[employer]LL[employer] BCBS B [id number] S [id number] [facility] MANAGEMENT SARA [id number] SP [id number] [place] 306/806 [id number] SP [id number] ANSI-Not a Secondary Insurance [id number] ANSI-Commercial [id number] ANSI-Not a Secondary Insurance [id number] ANSI-Commercial [id number] ANSI-Commercial [id number] ANSI-Not a Secondary Insurance [id number] ANSI-Not a Secondary Insurance [id number] ANSI-Commercial [id number] ANSI-Not a Secondary Insurance [id number] ANSI-Commercial [id number] ANSI-Not a Secondary Insurance [id number] ANSI-Commercial [id number] [facility] Community Plan Medigap Part B [id number] Self [id number] MVP (pr) Commercial [id number] Self [id number] Pma Ins (WC) Workers Compensation [id number] Self [id number] [place] Commercial [id number] Self [id number] BS [place] Hmo Blue Option Medigap Part B [id number] Self [id number] ANSI-Not a Secondary Insurance [id number] ANSI-Not a Secondary Insurance [id number] ANSI-Commercial [id number] ANSI-Commercial [id number] [facility] Part B [id number] Self [id number] MVP (pr) Commercial [id number] Self [id number] Pma Ins (WC) Workers Compensation [id number] Self [id number] [place] Commercial [id number] Self [id number] [facility] Part B [id number] Self [id number] MVP (pr) Commercial [id number] Self [id number] Pma Ins (WC) Workers Compensation [id number] Self [id number] [place] Commercial [id number] Self [id number] [facility] Part B [id number] Self [id number] MVP (pr) Commercial [id number] Self [id number] Pma Ins (WC) Workers Compensation [id number] Self [id number] BS [place] Commercial [id number] Self [id number] [facility] [id number] SP [id number] PMA MANAGEMENT SARA [id number] SP [id number] ANSI-Commercial [id number] ANSI-Not a Secondary Insurance [id number] ANSI-Not a Secondary Insurance [id number] [facility] ANSI-Not a Secondary Insurance [id number] ANSI-Not a Secondary Insurance [id number] ANSI-Commercial [id number] P HEALTH CARE [id number] SP [id number] ONE CALL CARE MANAGEMENT O [id number] S [id number] [facility] Part B [id number] Self [id number] MVP (pr) Commercial [id number] Self [id number] Pma Ins (WC) Workers Compensation [id number] Self [id number] Pma Ins (WC) Workers Compensation [id number] Self [id number] ANSI-Commercial [id number] ANSI-Not a Secondary Insurance [id number] ANSI-Not a Secondary Insurance [id number] [facility] Part B [id number] Self [id number] MVP (pr) Commercial [id number] Self [id number] Pma Ins (WC) Workers Compensation [id number] Self [id number] Pma Ins (WC) Workers Compensation [id number] Self [id number] PMA MANAGEMENT SARA [id number] SP [id number] P HEALTH CARE O [id number] S [id number] ANSI-Not a Secondary Insurance [id number] ANSI-Not a Secondary Insurance [id number] ANSI-Commercial [id number] MVP Commercial [id number] Self [id number] MVP Commercial [id number] Self [id number] [facility] Community Plan Medigap Part B [id number] Self [id number] MVP (pr) Commercial [id number] Self [id number] Pma Ins (WC) Workers Compensation [id number] Self [id number] MVP Commercial [id number] Self [id number] PMA MANAGEMENT SARA [id number] SP [id number] [facility] [id number] SP [id number] [facility] [id number] SP [id number] [facility] HEALTH CARE [id number] SP [id number] MVP Commercial Self MEDICAID M [id number] S [id number] [facility] PHY [id number] SP [id number] [facility](WC) Workers Compensation Self SELF PAY UNAVAILABLE UNAVAILA BLE [employer] COMMUNITY PLAN MCDHMO [id number] SP [id number] [facility] Health Maintenance Organization (HMO) Self HMO BLUE [id number] SP [id number] BLUE CROSS WHITESIDE PLAN [id number] SP [id number] [facility] [id number] Self [id number] [facility](MCAID) P [id number] S [id number] [employer] BCBS P [id number] S TIL [id number] Surgeries/Procedures Procedure Description Date Indications Data Source(s) PRESSURIZED/NONPRESSURIZED INHALATION TREATMENT 2019 12:00:00 AM EST MEDENT ([facility]) Influenza A+B 08/26/2019 12:00:00 AM EST eCW1 ([facility]) Results ID Date Data Source [id number] 08/01/2020 05:00:00 PM EST [facility] Name Value Range Interpretation Code Description Data Anabel rce(s) Supporting Document(s) SARS coronavirus 2 RNA [facility] This lab was ordered by [facility] and rep orted by [facility]. Procedure Social History Code Duration Value Status Description Data Source(s ) Smoking 01/30/2020 12:00:00 AM EDT Former Smoker completed Former Smoker eCW1 ([facility]) Smoking 01/30/2020 12:00:00 AM EDT Former Smoker completed Former Smoker eCW1 ([facility]) Vital Signs ID Date Data Source UNK Name Value Range Interpretation Code Description Data Source(s) Diastolic blood pressure 80 mm[Hg] 80 mm[Hg] eCW1 ([facility]) Systolic blood pressure 140 mm[Hg] 140 mm[Hg] e CW1 ([facility]) Body temperature 98.5 [degF] 98.5 [degF] eCW1 ( [facility]) Respiratory rate 20 /min 20 /min eCW1 ([facility]) Heart rate 92 /min 92 /min eCW1 ([facility]) Body mass index (BMI) [Ratio] 33.64 kg/m2 33.64 kg/m2 [facility] ([facility]) Body height 67 [in_i] 67 [in_i] W1 ([facility]) Body weight 214.8 [lb_av] 214.8 [lb_av] eCW1 ([facility]) Diastolic blood pressure 74 mm[Hg] 74 mm[Hg] eCW1 ([facility]) Systolic blood pressure 132 mm[Hg] 132 mm[Hg] e CW1 ([facility]) Body temperature 98.2 [degF] 98.2 [degF] eCW1 ( [facility]) Respiratory rate 18 /min 18 /min eCW1 ([facility]) Heart rate 80 /min 80 /min eCW1 ([facility]) Body mass index (BMI) [Ratio] 33.51 kg/m2 33.51 kg/m2 eCW ([facility]) Body height 67 [in_us] 67 [in_us] eCW1 ([facility]) Body weight Measured 214 [lb_av] 214 [lb_av] eC W1 ([facility]) Diastolic blood pressure 82 mm[Hg] 82 mm[Hg] eCW1 ([facility]) Systolic blood pressure 136 mm[Hg] 136 mm[Hg] e CW1 ([facility]) Body temperature 98.7 [degF] 98.7 [degF] eCW1 ( [facility]) Respiratory rate 20 /min 20 /min eCW1 ([facility]) Heart rate 86 /min 86 /min eCW1 ([facility]) Body mass index (BMI) [Ratio] 33.36 kg/m2 33.36 kg/m2 eCW1 ([facility]) Body height 67 [in_us] 67 [in_us] eCW1 ([facility]) Body weight Measured 213.0 [lb_av] 213.0 [lb_av ] eCW1 ([facility]) Body mass index (BMI) [Ratio] 37.4 kg/m2 37.4 k g/m2 MEDENT ([facility]) Body height 64 [in_i] 64 [in_i] MEDENT ([facility]) 5'4" Body weight 218.00 [lb_av] 218.00 [lb_av] MEDEN T ([place] [facility]) Body temperature 97.9 [degF] 97.9 [degF] MEDENT ([facility]) Oxygen saturation in Arterial blood by Pulse oximetry 97 % 97 % MEDENT ([facility]) Respiratory rate 18 /min 18 /min MEDENT ( [facility]) Heart rate 82 /min 82 /min MEDENT ([facility]) Diastolic blood pressure 74 mm[Hg] 74 mm[Hg] MEDENT ([place] [facility]) Systolic blood pressure 160 mm[Hg] 160 mm[Hg] M EDENT ([facility]) Diastolic blood pressure 75 mm[Hg] 75 mm[Hg] eCW1 ([facility]) Systolic blood pressure 145 mm[Hg] 145 mm[Hg] e CW1 ([facility]) Body temperature 100.4 [degF] 100.4 [degF] eCW1 ([facility]) Respiratory rate 20 /min 20 /min eCW1 ([facility]) Heart rate 78 /min 78 /min eCW1 ([facility]) Body mass index (BMI) [Ratio] 34.14 kg/m2 34.14 kg/m2 eCW1 ([facility]) Body height 67 [in_us] 67 [in_us] eCW1 ([facility]) Body weight Measured 218 [lb_av] 218 [lb_av] eC W1 ([facility]) Patient Treatment Plan of Care Planned Activity Planned Date Details Description Data Source (s) benzonatate 200 MG Oral Capsule 08/26/2019 12:00:00 AM EST eCW1 ([facility])
[2020-09-16 09:54] LABS: BASO % 0.7 % (0.0-1.0); EOS # 0.1 10^3/uL (0.0-0.5); EOS % 1.5 % (0.0-3.0); HEMATOCRIT 39.9 % (36.0-47.0); LYMPH # 1.7 10^3/uL (1.5-5.0); LYMPH % 37.8 % (24.0-44.0); MEAN CORPUSCULAR HEMOGLOBIN 29.7 pg (27.0-33.0); MEAN CORPUSCULAR HGB CONC 32.6 g/dl (32.0-36.5); MEAN CORPUSCULAR VOLUME 91.1 fl (80.0-96.0); MONO # 0.4 10^3/uL (0.0-0.8); NEUTROPHILS # 2.3 10^3/uL (1.5-8.5); NEUTROPHILS % 51.8 % (36.0-66.0); PLATELET COUNT, AUTOMATED 157 10^3/uL (150-450); RED BLOOD COUNT 4.38 10^6/uL (4.00-5.40); WHITE BLOOD COUNT 4.5 10^3/uL (4.0-10.0)
[2020-09-16 10:22] LABS: ALBUMIN 3.6 GM/DL (3.2-5.2); ALT/SGPT 32 U/L (12-78); AMYLASE 31 U/L (25-115); BILIRUBIN,DIRECT 0.1 MG/DL (0.0-0.2); BILIRUBIN,TOTAL 0.5 MG/DL (0.2-1.0); INR 0.97; LIPASE 102 U/L (73-393); PARTIAL THROMBOPLASTIN TIME 27.3 SECONDS (24.2-38.5); PROTHROMBIN TIME 13.1 SECONDS (12.5-14.3); TOTAL PROTEIN 7.2 GM/DL (6.4-8.2)
[2020-09-16] MEDS ORDERED: ISOVUE-370 76% 100ML VIAL As Ordered ONE (10:23)
[2020-09-16] MEDS ORDERED: NS 1,000 ML IV ONE (10:30)
--- NOTE | 2020-09-16 10:46 | REP ---
INDICATION: hematuria, RLQ TTP - rule out kidney stone vs appendicitis. COMPARISON: 12/28/2017 TECHNIQUE: Axial precontrast and contrast-enhanced images from the lung bases to the pubic symphysis using 100 cc Isovue 370 intravenous contrast material. Coronal and sagittal reformations obtained. This CT examination was performed using the following dose reduction techniques: Automated exposure control, adjustment of mA and/or kv according to the patient's size, and the use of iterative reconstruction technique. FINDINGS: Liver demonstrates mild fatty infiltration without focal hepatic lesion. Spleen, pancreas, gallbladder, bilateral adrenal glands and kidneys are normal. The enteric system including stomach, small, and large bowel appears normal. No evidence for obstruction or acute inflammatory process. Normal terminal ileum and appendix are identified in the right lower quadrant. Sigmoid diverticulosis noted without acute diverticulitis. Pelvis demonstrates normal bladder and age-appropriate uterus/adnexa. No ascites. No free air. No intraperitoneal or retroperitoneal adenopathy. Abdominal aorta and vasculature appear normal. Musculoskeletal structures are intact and without acute osseous abnormality. IMPRESSION: No acute abdominopelvic pathology appreciated. Normal appearance of the bilateral kidneys. Normal appendix. Hepatosteatosis. Diverticulosis without acute diverticulitis. <Electronically signed by Michael Lynn > 09/16/20 [id number]
[2020-09-16 10:51] LABS: CK-MB VALUE MASS < 1.0 NG/ML (<3.6); CPK CREATINE PHOSPHOKINASE 39 U/L (26-192); MB/CK RELATIVE INDEX 2.56 (< OR =4); TROPONIN I < 0.02 NG/ML (< 0.10)
[2020-09-16] MEDS ORDERED: CYCLOBENZAPRINE 10MG TABLET PO ONE (11:30)
[2020-09-16] MEDS ORDERED: LIDOCAINE 5% (LIDODERM) PATCH TD ONE (11:30)
[2020-09-16] MEDS ORDERED: LIDO5DIS41 TOP (12:41)
[2020-09-16] MEDS ORDERED: BACL10TA2 PO (12:41)
[2020-09-16 13:11] VITALS: BP 144/71
[2020-09-16] MEDS ORDERED: **NOTE PATIENT COMMENT** MISC XX ONE (23:00)
== END 2020-09-16 13:14 | disposition home or self-care (01) ==
LOC: M ED 08:55
DX: K57.30 Diverticulosis of large intestine without perforation or abscess without bleeding (principal); K76.0 Fatty (change of) liver, not elsewhere classified; S39.012A Strain of muscle, fascia and tendon of lower back, initial encounter; R31.9 Hematuria, unspecified; E66.9 Obesity, unspecified; I10 Essential (primary) hypertension; E78.5 Hyperlipidemia, unspecified; J45.909 Unspecified asthma, uncomplicated; G47.30 Sleep apnea, unspecified; Z87.448 Personal history of other diseases of urinary system; K29.70 Gastritis, unspecified, without bleeding; K90.0 Celiac disease; Z87.891 Personal history of nicotine dependence; Z79.899 Other long term (current) drug therapy
CPT/HCPCS: 74178; 80047; 80076; 81001; 82150; 82550; 82553; 83690; 84484; 85025; 85610; 85730; 96360; 96361; 99284; Q9967

== ENCOUNTER → 2021-06-14 | Outpatient (CLI) | payer BC ==
[~2021-06-14] MED LIST changes: +ACET325C5 PO; +BACL10TA2 PO; -FOLI400T PO; +FOLI400T13 PO; +LIDO5DIS41 TOP
[2021-06-14 15:16] LABS: BASO # 0.1 10^3/uL (0.0-0.2); BASO % 0.9 % (0.0-1.0); EOS # 0.1 10^3/uL (0.0-0.5); EOS % 1.7 % (0.0-3.0); HEMATOCRIT 41.7 % (36.0-47.0); HEMOGLOBIN 13.3 g/dl (12.0-15.5); LYMPH # 2.1 10^3/uL (1.5-5.0); LYMPH % 39.4 % (24.0-44.0); MEAN CORPUSCULAR HEMOGLOBIN 30.4 pg (27.0-33.0); MEAN CORPUSCULAR HGB CONC 31.9 g/dl (32.0-36.5); MEAN CORPUSCULAR VOLUME 95.2 fl (80.0-96.0); MONO # 0.5 10^3/uL (0.0-0.8); MONO % 9.9 % (2.0-8.0); NEUTROPHILS # 2.6 10^3/uL (1.5-8.5); NEUTROPHILS % 47.5 % (36.0-66.0); PLATELET COUNT, AUTOMATED 180 10^3/uL (150-450); RED BLOOD COUNT 4.38 10^6/uL (4.00-5.40); WHITE BLOOD COUNT 5.4 10^3/uL (4.0-10.0)
[2021-06-14 15:19] LABS: HEMATOCRIT 41.7 % (36.0-47.0)
[2021-06-14 15:37] LABS: INR 0.95; PARTIAL THROMBOPLASTIN TIME 30.4 SECONDS (25.9-37.0); PROTHROMBIN TIME 13.1 SECONDS (12.7-14.5)
[2021-06-14 15:55] LABS: ALBUMIN 3.5 GM/DL (3.2-5.2); ALT/SGPT 29 U/L (12-78); BILIRUBIN,TOTAL 0.6 MG/DL (0.2-1.0); BLOOD UREA NITROGEN 19 MG/DL (7-18); CALCIUM LEVEL 9.1 MG/DL (8.8-10.2); CARBON DIOXIDE LEVEL 31 MEQ/L (21-32); CHLORIDE LEVEL 105 MEQ/L (98-107); CHOLESTEROL LEVEL 191 MG/DL (<200); CHOLESTEROL RISK RATIO 6.366 (<5); CREATININE FOR GFR 0.75 MG/DL (0.55-1.30); FERRITIN 414 NG/ML (8-252); GLOMERULAR FILTRATION RATE > 60.0 (>45); GLUCOSE, FASTING 87 MG/DL (70-100); HDL CHOLESTEROL 30 MG/DL (>40); LDL CHOLESTEROL 110 MG/DL (<100); NON-HDL-C 161 MG/DL; NT-PRO BNP 114 PG/ML (<125); POTASSIUM SERUM 5.1 MEQ/L (3.5-5.1); PTH INTACT 77.6 PG/ML (18.5-88.0); SODIUM LEVEL 140 MEQ/L (136-145); TOTAL 25(OH) VITAMIN D 35.8 NG/ML (30.0-100.0); TOTAL PROTEIN 7.5 GM/DL (6.4-8.2); TRIGLYCERIDES LEVEL 257 MG/DL (<150); VALPROIC ACID (DEPAKOTE) 73.6 UG/ML (50.0-100.0); VITAMIN B12 LEVEL 1258 PG/ML (247-911)
== END ==
LOC: M PLALAB 12:15
PROVIDERS: ATTEND Family Medicine
DX: R73.01 Impaired fasting glucose (principal); I10 Essential (primary) hypertension; E53.8 Deficiency of other specified B group vitamins; G40.909 Epilepsy, unspecified, not intractable, without status epilepticus; E55.9 Vitamin D deficiency, unspecified

== ENCOUNTER → 2021-10-28 | Outpatient (CLI) | payer OTHER ==
[2021-10-28 13:39] LABS: BASO % 0.6 % (0.0-1.0); EOS # 0.1 10^3/uL (0.0-0.5); EOS % 1.4 % (0.0-3.0); HEMATOCRIT 41.3 % (36.0-47.0); HEMOGLOBIN 13.5 g/dl (12.0-15.5); LYMPH # 2.1 10^3/uL (1.5-5.0); LYMPH % 40.2 % (24.0-44.0); MEAN CORPUSCULAR HEMOGLOBIN 30.2 pg (27.0-33.0); MEAN CORPUSCULAR HGB CONC 32.7 g/dl (32.0-36.5); MEAN CORPUSCULAR VOLUME 92.4 fl (80.0-96.0); MONO # 0.5 10^3/uL (0.0-0.8); MONO % 9.5 % (2.0-8.0); NEUTROPHILS # 2.5 10^3/uL (1.5-8.5); NEUTROPHILS % 47.9 % (36.0-66.0); PLATELET COUNT, AUTOMATED 176 10^3/uL (150-450); RED BLOOD COUNT 4.47 10^6/uL (4.00-5.40); WHITE BLOOD COUNT 5.2 10^3/uL (4.0-10.0)
[2021-10-28 14:57] LABS: ALBUMIN 3.6 GM/DL (3.2-5.2); ALT/SGPT 30 U/L (12-78); BILIRUBIN,TOTAL 0.5 MG/DL (0.2-1.0); BLOOD UREA NITROGEN 20 MG/DL (7-18); C REACTIVE PROTEIN QUANTITATIV 0.46 MG/DL (0.00-0.30); CALCIUM LEVEL 9.7 MG/DL (8.8-10.2); CARBON DIOXIDE LEVEL 31 MEQ/L (21-32); CHLORIDE LEVEL 106 MEQ/L (98-107); CHOLESTEROL LEVEL 170 MG/DL (<200); CHOLESTEROL RISK RATIO 5.666 (<5); CREATININE FOR GFR 0.68 MG/DL (0.55-1.30); GLOMERULAR FILTRATION RATE > 60.0 (>45); GLUCOSE, FASTING 94 MG/DL (70-100); HDL CHOLESTEROL 30 MG/DL (>40); LDL CHOLESTEROL 94 MG/DL (<100); NON-HDL-C 140 MG/DL; POTASSIUM SERUM 4.7 MEQ/L (3.5-5.1); SODIUM LEVEL 139 MEQ/L (136-145); TOTAL PROTEIN 7.5 GM/DL (6.4-8.2); TRIGLYCERIDES LEVEL 232 MG/DL (<150); VALPROIC ACID (DEPAKOTE) 46.3 UG/ML (50.0-100.0)
[2021-10-28 19:37] LABS: HEMOGLOBIN A1c 5.6 %
== END ==
LOC: M PLALAB 10:30
PROVIDERS: ATTEND Family Medicine
DX: R73.01 Impaired fasting glucose (principal); G43.909 Migraine, unspecified, not intractable, without status migrainosus

== ENCOUNTER → 2021-11-02 | Outpatient (CLI) | payer OTHER ==
[~2021-11-02] MED LIST changes: +APAP325T4 PO; +CALC-234 PO; -VENTAER; +VENTAER INH; +VITA500038 PO; +[UNRECOGNIZED DRUG - CODE] PO
== END ==
LOC: M CARPUL 13:38
PROVIDERS: ATTEND Family Medicine
DX: R01.1 Cardiac murmur, unspecified (principal)

== ENCOUNTER 2021-11-04 10:11 | Observation (INO) | payer OTHER ==
[~2021-11-04] VITALS: Ht 162.6 cm; Wt 97.0 kg
[~2021-11-04 10:11] MED LIST changes: -APAP325T4 PO; -CALC-234 PO; -VITA500038 PO; -[UNRECOGNIZED DRUG - CODE] PO
[2021-11-04] MEDS ORDERED: NS 1,000 ML IV ONE (12:10)
[2021-11-04 12:32] LABS: BASO % 0.6 % (0.0-1.0); EOS # 0.1 10^3/uL (0.0-0.5); EOS % 1.1 % (0.0-3.0); HEMATOCRIT 43.4 % (36.0-47.0); HEMOGLOBIN 14.1 g/dl (12.0-15.5); LYMPH # 2.4 10^3/uL (1.5-5.0); LYMPH % 36.8 % (24.0-44.0); MEAN CORPUSCULAR HEMOGLOBIN 30.2 pg (27.0-33.0); MEAN CORPUSCULAR HGB CONC 32.5 g/dl (32.0-36.5); MEAN CORPUSCULAR VOLUME 92.9 fl (80.0-96.0); MONO # 0.6 10^3/uL (0.0-0.8); MONO % 9.1 % (2.0-8.0); NEUTROPHILS # 3.4 10^3/uL (1.5-8.5); NEUTROPHILS % 51.8 % (36.0-66.0); PLATELET COUNT, AUTOMATED 186 10^3/uL (150-450); RED BLOOD COUNT 4.67 10^6/uL (4.00-5.40); WHITE BLOOD COUNT 6.5 10^3/uL (4.0-10.0)
[2021-11-04] MEDS ORDERED: ISOVUE-370 76% 100ML VIAL As Ordered ONE (12:54)
[2021-11-04 12:57] LABS: CK-MB VALUE MASS < 1.0 NG/ML (<3.6); CPK CREATINE PHOSPHOKINASE 24 U/L (26-192); MB/CK RELATIVE INDEX 4.17 (< OR =4)
[2021-11-04 12:58] LABS: ERYTHROCYTE SEDIMENTATION RATE 5 mm/hr (0-30)
[2021-11-04 13:02] LABS: C REACTIVE PROTEIN QUANTITATIV < 0.30 MG/DL (0.00-0.30); FREE THYROXINE INDEX 3.4 % (1.3-4.8); T UPTAKE 35 % (30-39); THYROXINE (T4) 9.7 UG/DL (4.5-12.0)
[2021-11-04 14:38] LABS: CK-MB VALUE MASS < 1.0 NG/ML (<3.6); CPK CREATINE PHOSPHOKINASE 28 U/L (26-192); MB/CK RELATIVE INDEX 3.57 (< OR =4)
[2021-11-04] MEDS ORDERED: CALC-234 PO (16:07)
[2021-11-04] MEDS ORDERED: VITA500038 PO (16:07)
[2021-11-04] MEDS ORDERED: [UNRECOGNIZED DRUG - CODE] PO (16:07)
[2021-11-04] MEDS ORDERED: APAP325T4 PO (16:07)
[2021-11-04] MEDS ORDERED: HOME MED LIST COMPLETE! XX SCH (16:10)
[2021-11-04] MEDS ORDERED: ACETAMINOPHEN 325 MG TAB PO PRN (16:45)
[2021-11-04] MEDS ORDERED: ALBUTEROL 90 MCG/ACT 8GM HFA INHALER INH PRN (16:45)
[2021-11-04] MEDS ORDERED: MOM 30ML SUSPENSION UDC PO PRN (16:45)
[2021-11-04] MEDS ORDERED: IBUPROFEN 600MG TAB PO PRN (16:45)
[2021-11-04] MEDS ORDERED: LORazepam 2 MG/ML VIAL IV STA (17:44)
[2021-11-04 18:42] LABS: CHOLESTEROL LEVEL 154 MG/DL (<200); CHOLESTEROL RISK RATIO 4.666 (<5); HDL CHOLESTEROL 33 MG/DL (>40); LDL CHOLESTEROL 90 MG/DL (<100); NON-HDL-C 121 MG/DL; TRIGLYCERIDES LEVEL 155 MG/DL (<150)
[2021-11-04] MEDS ORDERED: LORazepam 2 MG/ML VIAL As Ordered ONE (18:47)
[2021-11-04] MEDS ORDERED: **NOTE PATIENT COMMENT** MISC XX SCH (21:00)
[2021-11-04] MEDS: ENOXAPARIN 40MG/0.4ML SYRINGE (J1650 PER 10MG) SC SCH (21:52)
[2021-11-04] MEDS: DIVALPROEX 500 MG TAB PO SCH (21:52)
[2021-11-04] MEDS: SIMVASTATIN 20 MG TAB PO SCH (21:52)
[2021-11-05 02:59] VITALS: BP_SYST 134; BP_DIAS 63; BP_DIAS 76
[2021-11-05 04:19] VITALS: BP 134/69
[2021-11-05 07:00] LABS: HEMATOCRIT 40.5 % (36.0-47.0); HEMOGLOBIN 12.8 g/dl (12.0-15.5); MEAN CORPUSCULAR HEMOGLOBIN 29.8 pg (27.0-33.0); MEAN CORPUSCULAR HGB CONC 31.6 g/dl (32.0-36.5); MEAN CORPUSCULAR VOLUME 94.2 fl (80.0-96.0); PLATELET COUNT, AUTOMATED 166 10^3/uL (150-450); WHITE BLOOD COUNT 5.4 10^3/uL (4.0-10.0)
[2021-11-05 07:25] LABS: BLOOD UREA NITROGEN 20 MG/DL (7-18); CALCIUM LEVEL 8.8 MG/DL (8.8-10.2); CARBON DIOXIDE LEVEL 31 MEQ/L (21-32); CHLORIDE LEVEL 107 MEQ/L (98-107); CREATININE FOR GFR 0.74 MG/DL (0.55-1.30); GLOMERULAR FILTRATION RATE > 60.0 (>45); GLUCOSE, FASTING 96 MG/DL (70-100); MAGNESIUM LEVEL 2.3 MG/DL (1.8-2.4); POTASSIUM SERUM 4.2 MEQ/L (3.5-5.1); SODIUM LEVEL 142 MEQ/L (136-145)
[2021-11-05 08:00] VITALS: BP 133/60
[2021-11-05] MEDS: CALCIUM/VITAMIN D 500 MG TAB PO SCH (08:51)
[2021-11-05] MEDS: OMEGA-3 1000MG CAPSULE PO SCH (08:51)
[2021-11-05] MEDS: VALPROIC ACID 250MG CAP PO SCH (08:51)
[2021-11-05] MEDS: CYANOCOBALAMIN 500 MCG TAB PO SCH (08:51)
[2021-11-05] MEDS: VITAMIN D 1,000 INTERNATIONAL UNITS TABLET PO SCH (08:51)
[2021-11-05] MEDS: FOLIC ACID 1 MG TAB PO SCH (08:51)
[2021-11-05] MEDS ORDERED: LIDOCAINE 5% (LIDODERM) PATCH TOP SCH (09:00)
[2021-11-05 16:00] VITALS: BP 118/63
[2021-11-05] MEDS: ENOXAPARIN 40MG/0.4ML SYRINGE (J1650 PER 10MG) SC SCH (20:42)
[2021-11-05] MEDS: SIMVASTATIN 20 MG TAB PO SCH (20:42)
[2021-11-05] MEDS: DIVALPROEX 500 MG TAB PO SCH (20:43)
[2021-11-05 23:43] VITALS: BP 119/57
[2021-11-06 04:01] VITALS: BP 120/59
[2021-11-06 08:00] VITALS: BP 132/60
[2021-11-06] MEDS: CYANOCOBALAMIN 500 MCG TAB PO SCH (08:37)
[2021-11-06] MEDS: OMEGA-3 1000MG CAPSULE PO SCH (08:37)
[2021-11-06] MEDS: CALCIUM/VITAMIN D 500 MG TAB PO SCH (08:37)
[2021-11-06] MEDS: VITAMIN D 1,000 INTERNATIONAL UNITS TABLET PO SCH (08:37)
[2021-11-06] MEDS: VALPROIC ACID 250MG CAP PO SCH (08:37)
[2021-11-06] MEDS: FOLIC ACID 1 MG TAB PO SCH (08:37)
[2021-11-06 16:00] VITALS: BP 143/63
[2021-11-06 20:00] VITALS: BP 116/55
[2021-11-06] MEDS: ENOXAPARIN 40MG/0.4ML SYRINGE (J1650 PER 10MG) SC SCH (20:05)
[2021-11-06] MEDS: SIMVASTATIN 20 MG TAB PO SCH (20:05)
[2021-11-06] MEDS: DIVALPROEX 500 MG TAB PO SCH (20:06)
[2021-11-07] VITALS: BP 113/52
[2021-11-07 04:00] VITALS: BP 124/57
[2021-11-07 08:00] VITALS: BP 123/58
[2021-11-07] MEDS: FOLIC ACID 1 MG TAB PO SCH (09:41)
[2021-11-07] MEDS: VITAMIN D 1,000 INTERNATIONAL UNITS TABLET PO SCH (09:41)
[2021-11-07] MEDS: CALCIUM/VITAMIN D 500 MG TAB PO SCH (09:41)
[2021-11-07] MEDS: CYANOCOBALAMIN 500 MCG TAB PO SCH (09:42)
[2021-11-07] MEDS: VALPROIC ACID 250MG CAP PO SCH (09:42)
[2021-11-07] MEDS: OMEGA-3 1000MG CAPSULE PO SCH (09:42)
[2021-11-07 09:44] VITALS: BP 119/59
[2021-11-07] MEDS ORDERED: LORazepam 2 MG/ML VIAL IV ONE (10:55)
[2021-11-07] MEDS ORDERED: PROHANCE 279.3MG/ML 15ML VIAL As Ordered ONE (11:40)
[2021-11-07] MEDS ORDERED: PROHANCE 279.3MG/ML 5ML VIAL As Ordered ONE (11:40)
[2021-11-07 12:17] VITALS: BP_SYST 128; BP_SYST 153; BP_DIAS 60; BP_DIAS 71
== END 2021-11-07 17:17 | disposition home or self-care (01) ==
LOC: M ED 10:11 → M ED INP 16:45 → ENRESERV 11-05 01:42 → M PCU 11-05 02:49
PROVIDERS: ADMIT Internal Medicine; ATTEND Internal Medicine
DX: R26.81 Unsteadiness on feet (principal); R42 Dizziness and giddiness; R55 Syncope and collapse; G40.909 Epilepsy, unspecified, not intractable, without status epilepticus; G43.909 Migraine, unspecified, not intractable, without status migrainosus; I10 Essential (primary) hypertension; E78.2 Mixed hyperlipidemia; J45.909 Unspecified asthma, uncomplicated; G89.29 Other chronic pain; G47.33 Obstructive sleep apnea (adult) (pediatric); Z79.899 Other long term (current) drug therapy; Z87.891 Personal history of nicotine dependence
CPT/HCPCS: 36415; 70450; 70496; 70498; 70544; 70551; 70553; 80047; 80048; 80061; 80164; 82550; 82553; 82607; 83735; 84425; 84436; 84443; 84479; 84484; 85025; 85027; 85652; 86140; 87798; 93005; 96372; 96374; 96375; 96376; 97116; 97161; 97165; 97530; 99285; A9576; J1650; J2060; Q9967

== ENCOUNTER 2022-08-31 16:08 | Inpatient (IN) | payer OTHER, SELFPAY ==
[~2022-08-31] VITALS: Ht 162.6 cm; Wt 82.9 kg
[~2022-08-31 16:08] MED LIST changes: +APAP325T4 PO; +CALC-234 PO; +FISH100015 PO; +VITA500038 PO
[2022-08-31 17:41] LABS: BASO # 0.1 10^3/uL (0.0-0.2); BASO % 0.5 % (0.0-1.0); EOS # 0.1 10^3/uL (0.0-0.5); EOS % 0.6 % (0.0-3.0); HEMOGLOBIN 12.4 g/dl (12.0-15.5); LYMPH # 1.7 10^3/uL (1.5-5.0); LYMPH % 12.9 % (24.0-44.0); MEAN CORPUSCULAR HGB CONC 31.8 g/dl (32.0-36.5); MEAN CORPUSCULAR VOLUME 94.2 fl (80.0-96.0); MONO # 0.9 10^3/uL (0.0-0.8); MONO % 6.9 % (2.0-8.0); NEUTROPHILS # 10.3 10^3/uL (1.5-8.5); NEUTROPHILS % 78.4 % (36.0-66.0); PLATELET COUNT, AUTOMATED 271 10^3/uL (150-450); RED BLOOD COUNT 4.14 10^6/uL (4.00-5.40); WHITE BLOOD COUNT 13.2 10^3/uL (4.0-10.0)
[2022-08-31 17:44] LABS: MAGNESIUM LEVEL 1.8 MG/DL (1.8-2.4)
[2022-08-31 17:45] LABS: BLOOD UREA NITROGEN 10 MG/DL (9-23); CALCIUM LEVEL 8.9 MG/DL (8.3-10.6); CARBON DIOXIDE LEVEL 27 MMOL/L (20-31); CHLORIDE LEVEL 101 MMOL/L (98-107); CK-MB VALUE MASS < 1.0 NG/ML (<3.6); CREATININE FOR GFR 0.59 MG/DL (0.55-1.30); GLOMERULAR FILTRATION RATE > 60.0 (>45); GLUCOSE, FASTING 95 MG/DL (74-106); POTASSIUM SERUM 3.7 MMOL/L (3.5-5.1); SODIUM LEVEL 139 MMOL/L (136-145)
[2022-08-31] MEDS ORDERED: AMOXICILLIN 500 MG CAP PO ONE (17:45)
[2022-08-31 17:47] LABS: THYROID STIMULATING HORMONE 3.378 uIU/ML (0.55-4.78)
[2022-08-31 17:48] LABS: FREE T4 1.09 NG/DL (0.89-1.76)
[2022-08-31 18:00] LABS: CPK CREATINE PHOSPHOKINASE 31 U/L (34-145); MB/CK RELATIVE INDEX 3.22 (< OR =4)
[2022-08-31 18:44] LABS: CK-MB VALUE MASS < 1.0 NG/ML (<3.6)
[2022-08-31 18:48] LABS: CPK CREATINE PHOSPHOKINASE 29 U/L (34-145); MB/CK RELATIVE INDEX 3.44 (< OR =4)
[2022-08-31] MEDS ORDERED: NS 500 ML IV ONE (18:50)
[2022-08-31 18:53] LABS: RSV AMPLIFICATION NEGATIVE (NEGATIVE)
[2022-08-31] MEDS ORDERED: SAXE1INJ SC (20:08)
[2022-08-31] MEDS ORDERED: AMLO2.5T3 PO (20:08)
[2022-08-31] MEDS ORDERED: LISI20TA33 PO (20:08)
[2022-08-31] MEDS ORDERED: HOME MED LIST COMPLETE! XX SCH (20:10)
[2022-08-31] MEDS ORDERED: NS 1,000 ML IV ONE (21:20)
[2022-08-31] MEDS ORDERED: ALBUTEROL SULFATE 2.5MG/0.5ML INH NEB SOLN INH PRN (21:20)
[2022-08-31] MEDS ORDERED: ACETAMINOPHEN TAB 650MG DOSE (2X325MG) PO PRN (21:20)
[2022-08-31] MEDS: ACETAMINOPHEN 325MG/10.15ML UDC PO PRN (22:29)
[2022-08-31] MEDS ORDERED: cefTRIAXone SOD 1 GM in D5W MINI-BAG PLUS 50 ML IV SCH (23:00)
[2022-08-31 23:51] VITALS: BP 135/65
[2022-09-01] MEDS: IPRATROPIUM 0.5MG/ALBUTEROL 2.5MG INH SOL UD 3ML (DUONEB) INH SCH ×4 (01:31→20:09)
[2022-09-01] MEDS ORDERED: DOXYCYCLINE HYCLATE 100MG TABLET PO SCH (02:00)
[2022-09-01] MEDS: HEPARIN SOD (PORCINE) 5000UNITS/ML 1ML VIAL/SYRINGE SC SCH ×2 (05:03→13:53)
[2022-09-01 05:38] LABS: BLOOD UREA NITROGEN 9 MG/DL (9-23); CALCIUM LEVEL 8.4 MG/DL (8.3-10.6); CARBON DIOXIDE LEVEL 25 MMOL/L (20-31); CHLORIDE LEVEL 100 MMOL/L (98-107); CREATININE FOR GFR 0.54 MG/DL (0.55-1.30); GLOMERULAR FILTRATION RATE > 60.0 (>45); GLUCOSE, FASTING 140 MG/DL (74-106); POTASSIUM SERUM 4.1 MMOL/L (3.5-5.1); SODIUM LEVEL 136 MMOL/L (136-145)
[2022-09-01] MEDS ORDERED: ISOVUE-370 76% 100ML VIAL As Ordered ONE (08:01)
[2022-09-01] MEDS: ACETAMINOPHEN 325MG/10.15ML UDC PO PRN ×3 (11:48→22:22)
[2022-09-01] MEDS: CYANOCOBALAMIN 500 MCG TAB PO SCH (11:49)
[2022-09-01] MEDS: VALPROIC ACID 250MG CAP PO SCH (11:49)
[2022-09-01] MEDS: AUGMENTIN 875 MG TAB PO SCH ×2 (11:49→21:22)
[2022-09-01 12:11] VITALS: BP_SYST 137; BP_SYST 146; BP_SYST 149; BP_DIAS 67; BP_DIAS 68; BP_DIAS 72
[2022-09-01 17:00] VITALS: BP 145/65
[2022-09-01 20:27] VITALS: BP 136/62
[2022-09-01 20:29] LABS: CREATININE FOR GFR 0.54 MG/DL (0.55-1.30); GLOMERULAR FILTRATION RATE > 60.0 (>45)
[2022-09-01] MEDS: ENOXAPARIN 80MG/0.8ML SYRINGE (J1650 PER 10MG) SC SCH (21:21)
[2022-09-01] MEDS: SIMVASTATIN 20 MG TAB PO SCH (21:22)
[2022-09-01] MEDS: DIVALPROEX 500 MG TAB PO SCH (21:22)
[2022-09-02] VITALS: BP 134/64
[2022-09-02] MEDS: IPRATROPIUM 0.5MG/ALBUTEROL 2.5MG INH SOL UD 3ML (DUONEB) INH SCH ×4 (01:43→19:29)
[2022-09-02] MEDS: ACETAMINOPHEN 325MG/10.15ML UDC PO PRN ×3 (04:07→21:25)
[2022-09-02 05:00] VITALS: BP 130/60
[2022-09-02 05:37] LABS: INR 1.13; PROTHROMBIN TIME 14.7 SECONDS (12.5-14.5)
[2022-09-02 05:38] LABS: PARTIAL THROMBOPLASTIN TIME 49.5 SECONDS (24.8-34.2)
[2022-09-02 07:45] LABS: BASO # 0.1 10^3/uL (0.0-0.2); BASO % 0.6 % (0.0-1.0); EOS % 0.1 % (0.0-3.0); HEMATOCRIT 37.1 % (36.0-47.0); HEMOGLOBIN 11.9 g/dl (12.0-15.5); LYMPH # 1.8 10^3/uL (1.5-5.0); LYMPH % 18.9 % (24.0-44.0); MEAN CORPUSCULAR HEMOGLOBIN 29.9 pg (27.0-33.0); MEAN CORPUSCULAR HGB CONC 32.1 g/dl (32.0-36.5); MEAN CORPUSCULAR VOLUME 93.2 fl (80.0-96.0); MONO # 1.2 10^3/uL (0.0-0.8); MONO % 11.9 % (2.0-8.0); NEUTROPHILS # 6.5 10^3/uL (1.5-8.5); NEUTROPHILS % 67.1 % (36.0-66.0); PLATELET COUNT, AUTOMATED 257 10^3/uL (150-450); RED BLOOD COUNT 3.98 10^6/uL (4.00-5.40); WHITE BLOOD COUNT 9.7 10^3/uL (4.0-10.0)
[2022-09-02 07:59] LABS: ALBUMIN 2.7 G/DL (3.2-5.2); ALKALINE PHOSPHATASE 82 U/L (46-116); ALT/SGPT 14 U/L (7.0-40); AST/SGOT 17 U/L (<34); BILIRUBIN,TOTAL 0.4 MG/DL (0.3-1.2); BLOOD UREA NITROGEN 14 MG/DL (9-23); CALCIUM LEVEL 8.6 MG/DL (8.3-10.6); CARBON DIOXIDE LEVEL 27 MMOL/L (20-31); CHLORIDE LEVEL 98 MMOL/L (98-107); CREATININE FOR GFR 0.54 MG/DL (0.55-1.30); GLOMERULAR FILTRATION RATE > 60.0 (>45); GLUCOSE, FASTING 134 MG/DL (74-106); POTASSIUM SERUM 3.9 MMOL/L (3.5-5.1); SODIUM LEVEL 134 MMOL/L (136-145); TOTAL PROTEIN 6.7 G/DL (5.7-8.2)
[2022-09-02] MEDS: AUGMENTIN 875 MG TAB PO SCH ×2 (08:02→21:17)
[2022-09-02] MEDS: ENOXAPARIN 80MG/0.8ML SYRINGE (J1650 PER 10MG) SC SCH (08:02)
[2022-09-02] MEDS: CYANOCOBALAMIN 500 MCG TAB PO SCH (08:02)
[2022-09-02] MEDS: VALPROIC ACID 250MG CAP PO SCH (08:06)
[2022-09-02 08:23] VITALS: BP 147/65
[2022-09-02] MEDS ORDERED: LR 1,000 ML IV SCH (08:55)
[2022-09-02] MEDS ORDERED: ISOVUE-370 76% 100ML VIAL As Ordered ONE (09:56)
[2022-09-02 12:00] VITALS: BP 164/73
[2022-09-02 20:00] VITALS: BP 120/58
[2022-09-02 21:17] VITALS: BP 120/58
[2022-09-02] MEDS: SIMVASTATIN 20 MG TAB PO SCH (21:17)
[2022-09-02] MEDS: DIVALPROEX 500 MG TAB PO SCH (21:17)
[2022-09-03] MEDS: IPRATROPIUM 0.5MG/ALBUTEROL 2.5MG INH SOL UD 3ML (DUONEB) INH SCH ×2 (01:18→07:37)
[2022-09-03 04:00] VITALS: BP 119/54
[2022-09-03] MEDS: ACETAMINOPHEN 325MG/10.15ML UDC PO PRN (06:43)
[2022-09-03] MEDS ORDERED: AMOX875T2 PO (08:40)
[2022-09-03] MEDS ORDERED: ENOXAPARIN 40MG/0.4ML SYRINGE (J1650 PER 10MG) SC SCH (09:00)
[2022-09-03] MEDS: VALPROIC ACID 250MG CAP PO SCH (09:06)
[2022-09-03] MEDS: AUGMENTIN 875 MG TAB PO SCH (09:06)
[2022-09-03] MEDS: CYANOCOBALAMIN 500 MCG TAB PO SCH (09:07)
[2022-09-03 09:34] VITALS: BP 130/58
[2022-09-08 15:08] LABS: BODY FLUID CULTURE Not indicated. (.); LEGIONELLA ANTIGEN URINE Negative (Negative); ORGANISM ID Not indicated. (.); SPECIMEN SOURCE Urine (.); URINE STREP PNEUMONIAE ANTIGEN Negative (Negative)
== END 2022-09-03 12:24 | disposition home or self-care (01) | DRG 204 ==
LOC: M ED 16:08 → M ED INP 21:16 → ENRESERV 22:16 → M PCU 23:36
PROVIDERS: ADMIT Internal Medicine; ATTEND Internal Medicine
DX: R55 Syncope and collapse (principal); R56.9 Unspecified convulsions; R54 Age-related physical debility; I10 Essential (primary) hypertension; R00.0 Tachycardia, unspecified; E66.9 Obesity, unspecified; E78.5 Hyperlipidemia, unspecified; G43.909 Migraine, unspecified, not intractable, without status migrainosus; J45.909 Unspecified asthma, uncomplicated; J02.0 Streptococcal pharyngitis; Z87.891 Personal history of nicotine dependence; Z20.822 Contact with and (suspected) exposure to COVID-19; Z79.899 Other long term (current) drug therapy; Z68.31 Body mass index [BMI] 31.0-31.9, adult; I35.0 Nonrheumatic aortic (valve) stenosis

== ENCOUNTER → 2023-09-04 | Outpatient (CLI) | payer OTHER ==
[~2023-09-04] MED LIST changes: +AMLO2.5T3 PO; +AMOX875T2 PO; +DICL100G10 TD; -DICL1GEL3 TD; +LISI20TA33 PO; +SAXE1INJ SC
== END ==
LOC: M RAD 18:13
PROVIDERS: ATTEND Physician Assistant Medical
DX: M54.50 Low back pain, unspecified (principal); M47.816 Spondylosis without myelopathy or radiculopathy, lumbar region

== ENCOUNTER 2023-10-28 20:22 | Observation (INO) | payer OTHER ==
[~2023-10-28] VITALS: Ht 162.6 cm; Wt 78.5 kg
[2023-10-28 21:16] LABS: BASO % 0.5 % (0.0-1.0); EOS # 0.1 10^3/uL (0.0-0.5); EOS % 1.2 % (0.0-3.0); HEMATOCRIT 31.2 % (36.0-47.0); HEMOGLOBIN 10.2 g/dl (12.0-15.5); LYMPH # 1.8 10^3/uL (1.5-5.0); LYMPH % 31.7 % (24.0-44.0); MEAN CORPUSCULAR HEMOGLOBIN 30.4 pg (27.0-33.0); MEAN CORPUSCULAR HGB CONC 32.7 g/dl (32.0-36.5); MEAN CORPUSCULAR VOLUME 92.9 fl (80.0-96.0); MONO # 0.5 10^3/uL (0.0-0.8); MONO % 8.9 % (2.0-8.0); NEUTROPHILS # 3.2 10^3/uL (1.5-8.5); NEUTROPHILS % 57.5 % (36.0-66.0); PLATELET COUNT, AUTOMATED 124 10^3/uL (150-450); RED BLOOD COUNT 3.36 10^6/uL (4.00-5.40); WHITE BLOOD COUNT 5.6 10^3/uL (4.0-10.0)
[2023-10-28 21:29] LABS: CK-MB VALUE MASS < 1.0 NG/ML (<3.6)
[2023-10-28 21:30] LABS: BLOOD UREA NITROGEN 21 MG/DL (9-23); CALCIUM LEVEL 7.7 MG/DL (8.3-10.6); CARBON DIOXIDE LEVEL 26 MMOL/L (20-31); CHLORIDE LEVEL 109 MMOL/L (98-107); CREATININE FOR GFR 0.76 MG/DL (0.55-1.30); GLOMERULAR FILTRATION RATE > 60.0 (>45); GLUCOSE, FASTING 110 MG/DL (74-106); MAGNESIUM LEVEL 1.9 MG/DL (1.8-2.4); SODIUM LEVEL 139 MMOL/L (136-145)
[2023-10-28 21:31] LABS: CPK CREATINE PHOSPHOKINASE 26 U/L (34-145); MB/CK RELATIVE INDEX 3.84 (< OR =4)
[2023-10-28 21:32] LABS: FREE T4 0.97 NG/DL (0.89-1.76)
[2023-10-28 21:33] LABS: THYROID STIMULATING HORMONE 5.222 uIU/ML (0.55-4.78)
[2023-10-28 21:35] LABS: RSV AMPLIFICATION NEGATIVE (NEGATIVE)
[2023-10-28] MEDS ORDERED: ISOVUE-370 76% 100ML VIAL As Ordered ONE (22:23)
[2023-10-28 22:44] LABS: CK-MB VALUE MASS < 1.0 NG/ML (<3.6)
[2023-10-28 22:45] LABS: CPK CREATINE PHOSPHOKINASE 36 U/L (34-145); MB/CK RELATIVE INDEX 2.77 (< OR =4)
[2023-10-29] MEDS ORDERED: HOME MED LIST COMPLETE! XX SCH (01:20)
[2023-10-29] MEDS ORDERED: ALBUTEROL 90 MCG/ACT 8GM HFA INHALER INH PRN (01:45)
[2023-10-29] MEDS: HEPARIN SOD (PORCINE) 5000UNITS/ML 1ML VIAL/SYRINGE SC SCH (06:00)
[2023-10-29 06:08] LABS: PLATELET COUNT, AUTOMATED 141 10^3/uL (150-450)
[2023-10-29 06:30] LABS: BLOOD UREA NITROGEN 18 MG/DL (9-23); CALCIUM LEVEL 8.1 MG/DL (8.3-10.6); CARBON DIOXIDE LEVEL 29 MMOL/L (20-31); CHLORIDE LEVEL 106 MMOL/L (98-107); CREATININE FOR GFR 0.75 MG/DL (0.55-1.30); GLOMERULAR FILTRATION RATE > 60.0 (>45); GLUCOSE, FASTING 89 MG/DL (74-106); POTASSIUM SERUM 4.4 MMOL/L (3.5-5.1); SODIUM LEVEL 139 MMOL/L (136-145)
[2023-10-29] MEDS: DIVALPROEX 500 MG TAB PO SCH (09:04)
[2023-10-29 12:03] LABS: IRON (FE) 44 UG/DL (50-170)
[2023-10-29 12:04] LABS: PERCENT SATURATION 16.7 % (13.2-45.0); TOTAL IRON BINDING CAPACITY 263 UG/DL (250-425)
[2023-10-29 12:05] LABS: FERRITIN 331.2 NG/ML (7.3-270.7); FOLATE > 24.00 NG/ML (>5.4)
[2023-10-29 12:06] LABS: VITAMIN B12 LEVEL 586 PG/ML (211-911)
[2023-10-29] MEDS ORDERED: ACETAMINOPHEN TAB 650MG DOSE (2X325MG) PO PRN (15:30)
[2023-10-29] MEDS: ACETAMINOPHEN TAB 650MG DOSE (2X325MG) PO PRN (15:50)
[2023-10-29 20:16] VITALS: BP 102/44; TEMP 98.2; O2SAT 98
[2023-10-29] MEDS: SIMVASTATIN 20 MG TAB PO SCH (21:17)
[2023-10-29] MEDS: VALPROIC ACID 250MG CAP PO SCH (21:17)
[2023-10-30] VITALS (10 sets, daily range): BP systolic 106–158; BP diastolic 51–74; TEMP 97.5–98.3; O2SAT 92–97
[2023-10-30] MEDS: D5W/LR 1,000 ML IV SCH (06:12)
[2023-10-30 06:23] LABS: BASO # 0.1 10^3/uL (0.0-0.2); EOS # 0.1 10^3/uL (0.0-0.5); EOS % 1.4 % (0.0-3.0); HEMATOCRIT 33.9 % (36.0-47.0); HEMOGLOBIN 10.7 g/dl (12.0-15.5); LYMPH # 1.8 10^3/uL (1.5-5.0); LYMPH % 35.1 % (24.0-44.0); MEAN CORPUSCULAR HEMOGLOBIN 29.8 pg (27.0-33.0); MEAN CORPUSCULAR HGB CONC 31.6 g/dl (32.0-36.5); MEAN CORPUSCULAR VOLUME 94.4 fl (80.0-96.0); MONO # 0.6 10^3/uL (0.0-0.8); MONO % 11.3 % (2.0-8.0); NEUTROPHILS # 2.6 10^3/uL (1.5-8.5); PLATELET COUNT, AUTOMATED 159 10^3/uL (150-450); RED BLOOD COUNT 3.59 10^6/uL (4.00-5.40); WHITE BLOOD COUNT 5.1 10^3/uL (4.0-10.0)
[2023-10-30 06:38] LABS: BLOOD UREA NITROGEN 20 MG/DL (9-23); CALCIUM LEVEL 8.3 MG/DL (8.3-10.6); CARBON DIOXIDE LEVEL 28 MMOL/L (20-31); CHLORIDE LEVEL 105 MMOL/L (98-107); CREATININE FOR GFR 0.68 MG/DL (0.55-1.30); GLOMERULAR FILTRATION RATE > 60.0 (>45); GLUCOSE, FASTING 91 MG/DL (74-106); POTASSIUM SERUM 4.3 MMOL/L (3.5-5.1); SODIUM LEVEL 138 MMOL/L (136-145)
[2023-10-30] MEDS ORDERED: LIDOCAINE 2% 100MG/5ML SDV (FOR ANES.) As Ordered ONE (13:38)
[2023-10-30] MEDS ORDERED: propofoL 200 MG/20 ML VIAL As Ordered ONE (13:38)
[2023-10-30] MEDS ORDERED: fentaNYL 100 MCG/2 ML INJECTION As Ordered ONE (13:40)
[2023-10-30] MEDS ORDERED: GLYCOPYRROLATE INJ 0.2 MG/ML 2 ML VIAL As Ordered ONE (13:45)
[2023-10-30] MEDS ORDERED: ATROPINE SULF 0.4 MG/ML 1ML VIAL As Ordered ONE (13:45)
[2023-10-30] MEDS ORDERED: MIDAZOLAM INJ 2MG/2ML VIAL As Ordered ONE (13:47)
[2023-10-30] MEDS ORDERED: ISOVUE-300 61% 100ML VIAL As Ordered ONE (13:49)
[2023-10-30] MEDS: ceFAZolin 2 GM/D5W 50 ML IV BAG As Ordered ONE (14:27)
[2023-10-30] MEDS: LIDOCAINE 1% SDV 30ML VIAL As Ordered ONE (15:28)
[2023-10-30] MEDS: LR 1,000 ML IV SCH (15:30)
[2023-10-30] MEDS ORDERED: ONDANSETRON 4MG 2ML VIAL IV PRN (15:30)
[2023-10-30] MEDS ORDERED: HYDROMORPHONE HCL 0.5 MG/ 0.5 ML SYRINGE IV PRN (15:30)
[2023-10-30] MEDS ORDERED: fentaNYL 100 MCG/2 ML INJECTION IV PRN (15:30)
[2023-10-30] MEDS ORDERED: oxyCODONE 5MG TAB PO PRN (15:30)
[2023-10-30] MEDS: ceFAZolin SOD 2 GM in IV 1 EA IV ONE (16:00)
[2023-10-31 05:51] LABS: BASO % 0.7 % (0.0-1.0); EOS % 0.5 % (0.0-3.0); HEMATOCRIT 34.5 % (36.0-47.0); HEMOGLOBIN 11.7 g/dl (12.0-15.5); LYMPH # 1.3 10^3/uL (1.5-5.0); LYMPH % 22.4 % (24.0-44.0); MEAN CORPUSCULAR HEMOGLOBIN 30.5 pg (27.0-33.0); MEAN CORPUSCULAR HGB CONC 33.9 g/dl (32.0-36.5); MEAN CORPUSCULAR VOLUME 90.1 fl (80.0-96.0); MONO # 0.5 10^3/uL (0.0-0.8); MONO % 8.8 % (2.0-8.0); NEUTROPHILS % 67.3 % (36.0-66.0); PLATELET COUNT, AUTOMATED 168 10^3/uL (150-450); RED BLOOD COUNT 3.83 10^6/uL (4.00-5.40)
[2023-10-31 06:02] LABS: BLOOD UREA NITROGEN 19 MG/DL (9-23); CARBON DIOXIDE LEVEL 26 MMOL/L (20-31); CHLORIDE LEVEL 104 MMOL/L (98-107); CREATININE FOR GFR 0.68 MG/DL (0.55-1.30); GLOMERULAR FILTRATION RATE > 60.0 (>45); GLUCOSE, FASTING 98 MG/DL (74-106); MAGNESIUM LEVEL 1.8 MG/DL (1.8-2.4); POTASSIUM SERUM 4.5 MMOL/L (3.5-5.1); SODIUM LEVEL 136 MMOL/L (136-145)
[2023-10-31 08:32] VITALS: BP 157/73; TEMP 98.6; O2SAT 96
[2023-10-31 12:13] VITALS: BP 167/78; TEMP 98.4; O2SAT 94
[2023-10-31 12:41] VITALS: BP 155/68
[2023-10-31 12:53] VITALS: BP 155/68
[2023-10-31] MEDS: amLODIPine 5 MG TAB PO ONE (12:53)
[2023-10-31 13:33] VITALS: BP 152/60
[2023-10-31] MEDS ORDERED: AMLO1TAB24 PO (14:01)
[2023-10-31 16:23] LABS: SOLUBLE TRANSFERRIN RECEPTOR 14.1 nmol/L (12.2-27.3); TRANSFERRIN 193 mg/dL (192-364)
== END 2023-10-31 14:41 | disposition home or self-care (01) ==
LOC: M ED 20:22 → EDBD 20:22 → M ED INP 20:23 → ENRESERV 10-30 06:04 → M PCU 10-30 06:40
PROVIDERS: ADMIT Internal Medicine; ATTEND Internal Medicine
DX: I44.2 Atrioventricular block, complete (principal); R55 Syncope and collapse; I10 Essential (primary) hypertension; K90.41 Non-celiac gluten sensitivity; D69.6 Thrombocytopenia, unspecified; E04.1 Nontoxic single thyroid nodule; Z79.899 Other long term (current) drug therapy
CPT/HCPCS: 33208; 36415; 71045; 71275; 76000; 76536; 80048; 80165; 82550; 82553; 82607; 82728; 82746; 83520; 83550; 83735; 84439; 84443; 84466; 84484; 85025; 85027; 86618; 87631; 93005; 93041; 93306; 94760; 95819; 96372; 97161; 97530; 99285; C1785; C1898; J0461; J0690; J2250; Q9967

== ENCOUNTER → 2023-11-07 | Outpatient (REF) | payer OTHER ==
[~2023-11-07] MED LIST changes: +AMLO1TAB24 PO
[2023-11-07 15:17] LABS: PERCENT SATURATION 14.5 % (13.2-45.0)
[2023-11-07 15:19] LABS: FERRITIN 348.2 NG/ML (7.3-270.7)
== END ==
LOC: M LAB REF 13:30
PROVIDERS: ATTEND Internal Medicine
DX: D64.9 Anemia, unspecified (principal)

== ENCOUNTER → 2024-01-22 | Outpatient (REF) | payer OTHER | LOC: M LAB REF 14:49 | PROVIDERS: ATTEND Internal Medicine Endocrinology, Diabetes & Metabolism | DX: E04.2 Nontoxic multinodular goiter (principal) ==

== ENCOUNTER → 2024-04-13 | Outpatient (REF) | payer OTHER | LOC: M LAB REF 17:57 | PROVIDERS: ATTEND Physician Assistant Medical | DX: B34.9 Viral infection, unspecified (principal) ==

== ENCOUNTER → 2024-06-09 | Outpatient (REF) | payer OTHER ==
[2024-06-09 15:41] LABS: FERRITIN 364.7 NG/ML (7.3-270.7)
[2024-06-09 15:43] LABS: PERCENT SATURATION 27.7 % (13.2-45.0)
== END ==
LOC: M LAB REF 12:29
PROVIDERS: ATTEND Internal Medicine
DX: D64.9 Anemia, unspecified (principal)

== ENCOUNTER → 2024-08-13 | Outpatient (REF) | payer OTHER, BC | LOC: M LAB REF 21:14 | PROVIDERS: ATTEND Physician Assistant | DX: B34.9 Viral infection, unspecified (principal) ==

== ENCOUNTER → 2025-06-17 | Outpatient (CLI) | payer OTHER ==
[~2025-06-17] MED LIST changes: -FISH100015 PO; +FISH100019 PO; -IBUP-1022 PO; +IBUP600T42 PO; +LIDO1ADH93 TOP; -LIDO5DIS41 TOP
== END ==
LOC: M WHC 10:39
PROVIDERS: ATTEND Internal Medicine
DX: E04.1 Nontoxic single thyroid nodule (principal)

== ENCOUNTER 2025-07-01 17:55 | Emergency (ER) | payer OTHER ==
[~2025-07-01] VITALS: Ht 172.7 cm; Wt 90.3 kg
[2025-07-01] MEDS: ACETAMINOPHEN 325 MG TAB PO ONE (18:42)
[2025-07-01 19:20] VITALS: BP 131/63; TEMP 98.4; O2SAT 98
== END 2025-07-01 19:33 | disposition home or self-care (01) ==
LOC: EDBD 17:55 → M ED 17:55
DX: S00.03XA Contusion of scalp, initial encounter (principal); S93.402A Sprain of unspecified ligament of left ankle, initial encounter; W01.198A Fall on same level from slipping, tripping and stumbling with subsequent striking against other object, initial encounter; I10 Essential (primary) hypertension; G40.909 Epilepsy, unspecified, not intractable, without status epilepticus; Z87.891 Personal history of nicotine dependence; Z91.02 Food additives allergy status; Y92.481 Parking lot as the place of occurrence of the external cause; Y93.89 Activity, other specified; Y99.9 Unspecified external cause status; Z79.52 Long term (current) use of systemic steroids; Z79.899 Other long term (current) drug therapy

== ENCOUNTER 2025-08-04 07:02 | Emergency (ER) | payer OTHER ==
[~2025-08-04] VITALS: Ht 152.4 cm; Wt 87.7 kg
[2025-08-04 11:05] VITALS: BP 126/59
[2025-08-04 11:06] VITALS: O2SAT 96
[2025-08-04] MEDS: ACETAMINOPHEN 500 MG TAB PO ONE (11:10)
[2025-08-04 11:12] VITALS: TEMP 97.6
== END 2025-08-04 11:17 | disposition home or self-care (01) ==
LOC: M ED 07:02
DX: S00.511A Abrasion of lip, initial encounter (principal); W00.0XXA Fall on same level due to ice and snow, initial encounter; Y99.0 Civilian activity done for income or pay; Y92.89 Other specified places as the place of occurrence of the external cause; Y93.9 Activity, unspecified; I10 Essential (primary) hypertension; Z95.0 Presence of cardiac pacemaker; R56.9 Unspecified convulsions; G31.9 Degenerative disease of nervous system, unspecified; Z79.899 Other long term (current) drug therapy